=== PATIENT | female | born 1980 | race Caucasian/White ===

== ENCOUNTER 2022-02-17 15:05 | Inpatient (IN) ==
[~2022-02-17 15:05] MED LIST: *HR* Dextrose 50 % in Water (Syg) 50 ML SYRINGE IVP ONE; Norepinephrine 4 MG/254 ML in 0.9% Sodium Chloride IVC ONE
[2022-02-17] MEDS: Norepinephrine 4 MG/254 ML IV.SOLN IVC SCH (15:24)
[2022-02-17 15:38] LABS: VBG HCO3 12 mEq/L (21-27); VBG PCO2 118 mmHg (41-51); VBG PH 6.62 pH Units (7.32-7.42); VBG PO2 104 mmHg (25-50)
[2022-02-17 15:45] LABS: Basophils # 0.2 K/mcL (0.0-0.2); Basophils % 0.9 %; Eosinophils # 0.2 K/mcL (0.0-0.6); Eosinophils % 0.8 %; Hematocrit 39.9 % (35.3-44.9); Hemoglobin 11.9 g/dL (11.5-15.4); Immature Granulocytes % 5.9 % (0-4); Lymphocytes % 46.8 %; Mean Corpuscular HGB Conc 29.8 g/dL (31.6-35.5); Mean Corpuscular Volume 100.5 fL (83.0-100.0); Mean Platelet Volume 10.7 fL (9.4-12.4); Monocytes # 1.1 K/mcL (0.0-1.3); Monocytes % 5.7 %; Nucleated Red Blood Cells 0.1 /100 WBC (0); Platelet Count 273 K/mcL (140-400); Red Blood Count 3.97 M/mcL (3.82-4.97); Segmented Neutrophils % 39.9 %; White Blood Count 18.7 K/mcL (4.3-11.1)
[2022-02-17 15:51] LABS: Lymphocytes # 8.8 K/mcL (0.6-4.6); Neutrophils # 7.5 K/mcL (1.6-8.9)
[2022-02-17 15:53] LABS: Amphetamine Screen,Urine Positive ng/mL (Cutoff=1000); Barbiturate Screen,Urine Negative ng/mL (Cutoff=200); Benzodiazepines Screen,Urine Negative ng/mL (Cutoff=200); Cannabinoid Screen,Urine Negative ng/mL (Cutoff = 50); Cocaine Screen,Urine Positive ng/mL (Cutoff= 300); Opiate Screen,Urine Negative ng/mL (Cutoff=300); Phencyclidine Screen,Urine Negative ng/mL (Cutoff=25)
[2022-02-17 16:09] LABS: Reactive Lymphocytes Present (Not Present)
[2022-02-17 16:24] LABS: Albumin 3.3 g/dL (3.5-5.7); Albumin/Globulin Ratio 1.4 (1.1-2.2); Bilirubin,Total 0.5 mg/dL (0.3-1.0); Calcium 8.3 mg/dL (8.6-10.3); Globulin 2.4 g/dL (2.4-3.5); Total Protein 5.7 g/dL (6.4-8.9)
[2022-02-17 17:08] LABS: VBG HCO3 10 mEq/L (21-27); VBG PCO2 34 mmHg (41-51); VBG PH 7.08 pH Units (7.32-7.42); VBG PO2 227 mmHg (25-50)
[2022-02-17] MEDS ORDERED: *HR* Midazolam HCl 50 MG/10 ML VIAL IVC ONE (17:31)
[2022-02-17] MEDS ORDERED: *HR* FentaNYL (PF) 1,000 MCG/20 ML VIAL ONE (17:31)
[2022-02-17] MEDS ORDERED: Ringers Solution, Lactated 1,000 ML IVC ONE (17:36)
[2022-02-17] MEDS: Midazolam HCl 50 MG/50 ML IV.SOLN IVC SCH (17:49)
[2022-02-17] MEDS: FentaNYL (PF) 1,000 MCG/100 ML IV.SOLN IVC SCH (17:50)
[2022-02-17] MEDS ORDERED: Piperacillin/Tazobactam 3.375 GM in 0.9 % Sodium Chloride Mini Bag 100 ML IVPB ONE (18:42)
[2022-02-17] MEDS ORDERED: Naloxone 0.4 MG/ML INJ IVP PRN (20:41)
[2022-02-17] MEDS ORDERED: Dextrose 4 GM Chewable Tablets PO PRN ×2 (20:49)
[2022-02-17] MEDS ORDERED: *HR* Dextrose 50 % in Water (Syg) 50 ML SYRINGE IVP PRN (20:49)
[2022-02-17] MEDS ORDERED: D5% in Water 1,000 ML IVC PRN (20:49)
[2022-02-17] MEDS ORDERED: Artificial Tears SOLN 15 ML BOTTLE BOTH EYES PRN (20:51)
[2022-02-17 21:05] LABS: Bacteria,Urine Few per hpf (None-Few); Bilirubin,Urine Negative (Negative); Blood,Urine Large (Negative); Clarity,Urine Clear (Clear); Color,Urine Yellow (Yellow); Glucose,Urine (UA) Normal (Normal); Ketones,Urine 100 mg/dL (Negative); Leukocyte Esterase,Urine Trace (Negative); Mucus,Urine Few per lpf (None-Few); Nitrite,Urine Negative (Negative); Protein,Urine 70 mg/dL (Neg-Trace); RBC,Urine 50-100 per hpf (0-3); Specific Gravity,Urine 1.023 (1.010-1.025); Squamous Epithelial Cell,Urine Moderate per hpf (None-Few); WBC,Urine 30-50 per hpf (0-3)
[2022-02-17 21:06] LABS: ABG Base Excess -5 mEq/L (-2 to 3); ABG HCO3 18 mEq/L (21-27); ABG Oxygen Saturation 100 % (95-98); ABG PCO2 28 mmHg (35-45); ABG PH 7.43 pH Units (7.32-7.45); ABG PO2 199 mmHg (85-104); ABG TCO2 19 mEq/L (20-26); Blood Gas Modality ASSIST CONTROL; Blood Gas VT 500 cc
[2022-02-17] MEDS ORDERED: Perflutren Lipid Microsphere 1.3 ML in 0.9 % Sodium Chloride 8.7 ML IVP PRN (21:17)
[2022-02-17 21:44] LABS: INR 1.5; Prothrombin Time 16.4 Seconds (9.4-12.1)
[2022-02-17 22:31] LABS: Activated Partial Thrombo Time 26.8 Seconds (26.0-36.0); Albumin 3.5 g/dL (3.5-5.7); Albumin/Globulin Ratio 1.3 (1.1-2.2); Bilirubin,Direct 0.3 mg/dL (0.0-0.2); Bilirubin,Indirect 0.5 mg/dL (0.0-1.0); Bilirubin,Total 0.8 mg/dL (0.3-1.0); Calcium 7.9 mg/dL (8.6-10.3); Globulin 2.6 g/dL (2.4-3.5); Magnesium 1.8 mg/dL (1.6-2.6); Phosphorous 1.5 mg/dL (2.7-4.5); Potassium 3.1 mEq/L (3.5-5.1); Total Protein 6.1 g/dL (6.4-8.9)
[2022-02-17] MEDS ORDERED: Calcium Gluconate 1gm/50mL 1 GM/50 ML BAG IVPB PRN (22:50)
[2022-02-17] MEDS: Chlorhexidine Rinse 15 ML MOUTHWASH MM SCH (22:51)
[2022-02-17 22:57] LABS: Basophils % 0.2 %; Hematocrit 37.1 % (35.3-44.9); Hemoglobin 12.9 g/dL (11.5-15.4); Mean Corpuscular HGB Conc 34.8 g/dL (31.6-35.5); Red Cell Distribution Width 12.9 % (11.5-14.5)
[2022-02-17 22:59] LABS: Basophils # 0.1 K/mcL (0.0-0.2); Lymphocytes # 0.7 K/mcL (0.6-4.6); Lymphocytes % 2.2 %; Mean Corpuscular Hemoglobin 30.4 pg (28.0-33.3); Mean Corpuscular Volume 87.3 fL (83.0-100.0); Mean Platelet Volume 10.5 fL (9.4-12.4); Monocytes # 1.2 K/mcL (0.0-1.3); Monocytes % 3.9 %; Platelet Count 233 K/mcL (140-400); Red Blood Count 4.25 M/mcL (3.82-4.97); Segmented Neutrophils % 92.7 %; White Blood Count 29.6 K/mcL (4.3-11.1)
[2022-02-17 23:02] LABS: Neutrophils # 27.4 K/mcL (1.6-8.9)
[2022-02-17 23:47] LABS: Platelet Estimate Normal (Normal)
[2022-02-17] MEDS: Artificial Tears SOLN 15 ML BOTTLE BOTH EYES SCH (23:49)
[2022-02-17] MEDS: Insulin LISPRO 300 UNITS/3 ML VIAL SUBQ SCH (23:52)
[2022-02-18 00:26] LABS: Bilirubin,Urine Negative (Negative); Blood,Urine Large (Negative); Clarity,Urine Turbid (Clear); Color,Urine Yellow (Yellow); Glucose,Urine (UA) 100 mg/dL (Normal); Ketones,Urine 15 mg/dL (Negative); Leukocyte Esterase,Urine Negative (Negative); Nitrite,Urine Negative (Negative); PH,Urine 5.5 pH Units (5.0-8.0); Protein,Urine 100 mg/dL (Neg-Trace); Specific Gravity,Urine 1.025 (1.010-1.025); Urobilinogen,Urine Normal (Normal)
[2022-02-18] MEDS: Norepinephrine 4 MG/254 ML IV.SOLN IVC SCH ×3 (00:26→19:39)
[2022-02-18] MEDS: Artificial Tears SOLN 15 ML BOTTLE BOTH EYES SCH ×6 (00:27→19:27)
[2022-02-18] MEDS ORDERED: 0.9 % Sodium Chloride 1,000 ML IVC SCH (00:45)
[2022-02-18 01:27] LABS: Adenovirus Not Detected (Not Detect); Bordetella Pertussis Not Detected (Not Detect); Chlamydophila pneumoniae Not Detected (Not Detect); Coronavirus 229E Not Detected (Not Detect); Coronavirus HKU1 Not Detected (Not Detect); Coronavirus NL63 DETECTED (Not Detect); Coronavirus OC43 Not Detected (Not Detect); Human Metapneumovirus Not Detected (Not Detect); Human Rhinovirus/Enterovirus Not Detected (Not Detect); Influenza A Subtype 2009 H1 Not Detected (Not Detect); Influenza B Not Detected (Not Detect); Mycoplasma pneumoniae Not Detected (Not Detect); Parainfluenza Virus 1 Not Detected (Not Detect); Parainfluenza Virus 2 Not Detected (Not Detect); Parainfluenza Virus 3 Not Detected (Not Detect); Parainfluenza Virus 4 Not Detected (Not Detect); Respiratory Syncytial Virus Not Detected (Not Detect); SARS-CoV-2 Not Detected (Not Detect)
[2022-02-18] MEDS: Piperacillin/Tazobactam 3.375 GM in 0.9 % Sodium Chloride Mini Bag 100 ML IVPB SCH ×3 (03:16→19:38)
[2022-02-18 03:17] LABS: Basophils % 0.2 %; Lymphocytes % 3.6 %; Segmented Neutrophils % 91.9 %
[2022-02-18 03:18] LABS: Basophils # 0.1 K/mcL (0.0-0.2); Hematocrit 37.5 % (35.3-44.9); Hemoglobin 13.1 g/dL (11.5-15.4); Immature Granulocytes % 1.2 % (0-4); Lymphocytes # 1.2 K/mcL (0.6-4.6); Mean Corpuscular HGB Conc 34.9 g/dL (31.6-35.5); Mean Corpuscular Hemoglobin 30.4 pg (28.0-33.3); Mean Platelet Volume 10.5 fL (9.4-12.4); Monocytes % 3.1 %; Neutrophils # 30.5 K/mcL (1.6-8.9); Platelet Count 232 K/mcL (140-400); Red Blood Count 4.31 M/mcL (3.82-4.97); Red Cell Distribution Width 12.7 % (11.5-14.5)
[2022-02-18 03:20] LABS: White Blood Count 33.2 K/mcL (4.3-11.1)
[2022-02-18] MEDS: Insulin LISPRO 300 UNITS/3 ML VIAL SUBQ SCH ×5 (03:32→19:27)
[2022-02-18 03:42] LABS: Platelet Estimate Normal (Normal)
[2022-02-18 03:54] LABS: Alanine Aminotransferase 1079 Units/L (7-52); Albumin 3.6 g/dL (3.5-5.7); Albumin/Globulin Ratio 1.4 (1.1-2.2); Alkaline Phosphatase 58 Units/L (34-104); Aspartate Amino Transferase 1477 Units/L (13-39); BUN/Creatinine Ratio 17 (6-26); Bilirubin,Direct 0.2 mg/dL (0.0-0.2); Bilirubin,Indirect 0.5 mg/dL (0.0-1.0); Bilirubin,Total 0.7 mg/dL (0.3-1.0); Blood Urea Nitrogen 20 mg/dL (6-20); Calcium 8.3 mg/dL (8.6-10.3); Carbon Dioxide 19 mEq/L (23-29); Chloride 107 mEq/L (98-107); Globulin 2.5 g/dL (2.4-3.5); Glucose 99 mg/dL (70-105); Osmolality,Calculated 281 (280-300); Potassium 3.7 mEq/L (3.5-5.1); Sodium 134 mEq/L (136-145); Total Protein 6.1 g/dL (6.4-8.9); eGFR For African Americans > 60 (> 60); eGFR For Non-African Americans 51 (> 60)
[2022-02-18] MEDS ORDERED: Vancomycin 1,500 MG/265 ML IV.SOLN IVPB ONE (04:00)
[2022-02-18 04:41] LABS: ABG Base Excess -5 mEq/L (-2 to 3); ABG HCO3 17 mEq/L (21-27); ABG Oxygen Saturation 99 % (95-98); ABG PCO2 26 mmHg (35-45); ABG PH 7.44 pH Units (7.32-7.45); ABG PO2 111 mmHg (85-104); ABG TCO2 18 mEq/L (20-26); Blood Gas Modality ASSIST CONTROL; Blood Gas VT 500 cc
[2022-02-18] MEDS: Dexmedetomidine HCl 400 MCG/100 ML MLS IVC SCH (04:43)
[2022-02-18 05:08] LABS: INR 1.7; Prothrombin Time 18.6 Seconds (9.4-12.1)
[2022-02-18 09:49] LABS: BUN/Creatinine Ratio 18 (6-26); Blood Urea Nitrogen 19 mg/dL (6-20); Calcium 7.8 mg/dL (8.6-10.3); Carbon Dioxide 17 mEq/L (23-29); Chloride 110 mEq/L (98-107); Glucose 82 mg/dL (70-105); Osmolality,Calculated 281 (280-300); Potassium 4.3 mEq/L (3.5-5.1); Sodium 135 mEq/L (136-145); eGFR For African Americans > 60 (> 60); eGFR For Non-African Americans 58 (> 60)
[2022-02-18 09:54] LABS: Troponin I 0.45 ng/mL (< 0.04)
[2022-02-18] MEDS: Chlorhexidine Rinse 15 ML MOUTHWASH MM SCH ×2 (10:36→20:29)
[2022-02-18] MEDS: Pantoprazole 40 MG VIAL IVP SCH (10:36)
[2022-02-18] MEDS: FentaNYL (PF) 1,000 MCG/100 ML IV.SOLN IVC SCH (18:03)
[2022-02-18] MEDS: Midazolam HCl 50 MG/50 ML IV.SOLN IVC SCH (18:04)
[2022-02-19] MEDS: Artificial Tears SOLN 15 ML BOTTLE BOTH EYES SCH ×6 (00:01→19:36)
[2022-02-19] MEDS: Insulin LISPRO 300 UNITS/3 ML VIAL SUBQ SCH ×6 (00:01→19:39)
[2022-02-19] MEDS: D5% in 0.9% NACL 1,000 ML IVC SCH ×2 (00:21→15:06)
[2022-02-19] MEDS: Dexmedetomidine HCl 400 MCG/100 ML MLS IVC SCH (01:04)
[2022-02-19] MEDS: Norepinephrine 4 MG/254 ML IV.SOLN IVC SCH ×2 (01:04→19:49)
[2022-02-19] MEDS: Piperacillin/Tazobactam 3.375 GM in 0.9 % Sodium Chloride Mini Bag 100 ML IVPB SCH ×3 (03:08→19:36)
[2022-02-19 03:15] LABS: Basophils % 0.2 %; Eosinophils # 0.1 K/mcL (0.0-0.6); Eosinophils % 0.3 %; Hematocrit 36.2 % (35.3-44.9); Immature Granulocytes % 0.5 % (0-4); Lymphocytes # 1.7 K/mcL (0.6-4.6); Mean Corpuscular HGB Conc 33.1 g/dL (31.6-35.5); Mean Corpuscular Hemoglobin 29.9 pg (28.0-33.3); Mean Platelet Volume 10.7 fL (9.4-12.4); Monocytes % 5.2 %; Neutrophils # 16.3 K/mcL (1.6-8.9); Platelet Count 224 K/mcL (140-400); Red Blood Count 4.02 M/mcL (3.82-4.97); Red Cell Distribution Width 13.5 % (11.5-14.5); Segmented Neutrophils % 84.8 %; White Blood Count 19.2 K/mcL (4.3-11.1)
[2022-02-19 03:33] LABS: Amylase 118 Units/L (29-103); BUN/Creatinine Ratio 16 (6-26); Blood Urea Nitrogen 14 mg/dL (6-20); Calcium 7.9 mg/dL (8.6-10.3); Carbon Dioxide 16 mEq/L (23-29); Chloride 111 mEq/L (98-107); Creatine Kinase 827 Units/L (30-223); Glucose 86 mg/dL (70-105); Lipase 20 Units/L (11-82); Osmolality,Calculated 282 (280-300); Potassium 3.7 mEq/L (3.5-5.1); Sodium 136 mEq/L (136-145); eGFR For African Americans > 60 (> 60); eGFR For Non-African Americans > 60 (> 60)
[2022-02-19 03:52] LABS: ABG Base Excess -7 mEq/L (-2 to 3); ABG HCO3 17 mEq/L (21-27); ABG Oxygen Saturation 96 % (95-98); ABG PCO2 29 mmHg (35-45); ABG PH 7.37 pH Units (7.32-7.45); ABG PO2 82 mmHg (85-104); ABG TCO2 18 mEq/L (20-26); Blood Gas Modality AF; Blood Gas VT 450 cc
[2022-02-19] MEDS ORDERED: Vancomycin 1,250 MG/262.5 ML IV.SOLN IVPB SCH (04:00)
[2022-02-19] MEDS: Pantoprazole 40 MG VIAL IVP SCH (07:28)
[2022-02-19] MEDS: Chlorhexidine Rinse 15 ML MOUTHWASH MM SCH ×2 (07:28→19:35)
[2022-02-19] MEDS ORDERED: *HR* LORazepam 2 MG/ML VIAL IVP PRN (10:43)
[2022-02-19] MEDS: Vancomycin 1,250 MG/262.5 ML IV.SOLN IVPB SCH (17:17)
[2022-02-20] MEDS: Artificial Tears SOLN 15 ML BOTTLE BOTH EYES SCH ×6 (00:08→19:42)
[2022-02-20] MEDS: Insulin LISPRO 300 UNITS/3 ML VIAL SUBQ SCH ×6 (00:08→19:42)
[2022-02-20] MEDS: D5% in 0.9% NACL 1,000 ML IVC SCH ×2 (03:11→13:01)
[2022-02-20] MEDS: Piperacillin/Tazobactam 3.375 GM in 0.9 % Sodium Chloride Mini Bag 100 ML IVPB SCH ×3 (04:10→22:10)
[2022-02-20] MEDS: Vancomycin 1,250 MG/262.5 ML IV.SOLN IVPB SCH ×2 (04:13→16:53)
[2022-02-20 04:44] LABS: ABG Base Excess -5 mEq/L (-2 to 3); ABG HCO3 19 mEq/L (21-27); ABG Oxygen Saturation 97 % (95-98); ABG PCO2 30 mmHg (35-45); ABG PO2 94 mmHg (85-104); ABG TCO2 19 mEq/L (20-26); Blood Gas Modality ASSIST CONTROL; Blood Gas VT 450 cc
[2022-02-20 06:59] LABS: Basophils # 0.1 K/mcL (0.0-0.2); Basophils % 0.3 %; Eosinophils # 0.1 K/mcL (0.0-0.6); Eosinophils % 0.5 %; Hematocrit 36.1 % (35.3-44.9); Hemoglobin 12.1 g/dL (11.5-15.4); Immature Granulocytes % 0.5 % (0-4); Lymphocytes # 1.5 K/mcL (0.6-4.6); Lymphocytes % 9.7 %; Mean Corpuscular HGB Conc 33.5 g/dL (31.6-35.5); Mean Corpuscular Volume 89.6 fL (83.0-100.0); Mean Platelet Volume 10.7 fL (9.4-12.4); Monocytes # 1.3 K/mcL (0.0-1.3); Monocytes % 8.7 %; Neutrophils # 12.1 K/mcL (1.6-8.9); Platelet Count 201 K/mcL (140-400); Red Blood Count 4.03 M/mcL (3.82-4.97); Red Cell Distribution Width 13.5 % (11.5-14.5); Segmented Neutrophils % 80.3 %; White Blood Count 15.1 K/mcL (4.3-11.1)
[2022-02-20 07:13] LABS: BUN/Creatinine Ratio 9 (6-26); Blood Urea Nitrogen 6 mg/dL (6-20); Carbon Dioxide 20 mEq/L (23-29); Chloride 113 mEq/L (98-107); Glucose 106 mg/dL (70-105); Magnesium 1.6 mg/dL (1.6-2.6); Osmolality,Calculated 284 (280-300); Phosphorous 1.5 mg/dL (2.7-4.5); Potassium 3.6 mEq/L (3.5-5.1); Sodium 138 mEq/L (136-145); eGFR For African Americans > 60 (> 60); eGFR For Non-African Americans > 60 (> 60)
[2022-02-20] MEDS: Chlorhexidine Rinse 15 ML MOUTHWASH MM SCH ×2 (07:27→22:10)
[2022-02-20] MEDS: Pantoprazole 40 MG VIAL IVP SCH (07:28)
[2022-02-20] MEDS: Norepinephrine 4 MG/254 ML IV.SOLN IVC SCH ×3 (07:28→22:10)
[2022-02-20] MEDS ORDERED: Potassium Phosphate 44 MEQ in 0.9 % Sodium Chloride 250 ML IVPB ONE (07:47)
[2022-02-20 19:12] LABS: Magnesium 1.9 mg/dL (1.6-2.6); Phosphorous 2.4 mg/dL (2.7-4.5)
[2022-02-20 23:03] LABS: Appearance of Body Fluid Hazy (Clear); Source of Body Fluid RIGHT LOWER LOBE LUN; Volume of Body Fluid 17 mL
[2022-02-21] MEDS: Insulin LISPRO 300 UNITS/3 ML VIAL SUBQ SCH ×6 (00:06→20:25)
[2022-02-21] MEDS: Artificial Tears SOLN 15 ML BOTTLE BOTH EYES SCH ×7 (00:06→23:42)
[2022-02-21] MEDS: D5% in 0.9% NACL 1,000 ML IVC SCH ×3 (00:08→18:45)
[2022-02-21] MEDS: Piperacillin/Tazobactam 3.375 GM in 0.9 % Sodium Chloride Mini Bag 100 ML IVPB SCH ×3 (05:03→20:41)
[2022-02-21 05:20] LABS: VBG Ionized Calcium 1.08 mmol/L (1.15-1.35)
[2022-02-21 05:25] LABS: Basophils # 0.1 K/mcL (0.0-0.2); Basophils % 0.5 %; Eosinophils # 0.2 K/mcL (0.0-0.6); Eosinophils % 1.4 %; Hemoglobin 11.5 g/dL (11.5-15.4); Immature Granulocytes % 0.7 % (0-4); Lymphocytes # 1.5 K/mcL (0.6-4.6); Lymphocytes % 13.4 %; Mean Corpuscular HGB Conc 33.8 g/dL (31.6-35.5); Mean Corpuscular Hemoglobin 30.1 pg (28.0-33.3); Mean Platelet Volume 11.1 fL (9.4-12.4); Monocytes # 0.9 K/mcL (0.0-1.3); Monocytes % 8.3 %; Neutrophils # 8.3 K/mcL (1.6-8.9); Platelet Count 185 K/mcL (140-400); Red Blood Count 3.82 M/mcL (3.82-4.97); Red Cell Distribution Width 13.5 % (11.5-14.5); Segmented Neutrophils % 75.7 %
[2022-02-21 05:48] LABS: Alanine Aminotransferase 325 Units/L (7-52); Albumin/Globulin Ratio 1.3 (1.1-2.2); Alkaline Phosphatase 45 Units/L (34-104); Aspartate Amino Transferase 66 Units/L (13-39); BUN/Creatinine Ratio 8 (6-26); Bilirubin,Total 0.7 mg/dL (0.3-1.0); Blood Urea Nitrogen 4 mg/dL (6-20); Calcium 8.1 mg/dL (8.6-10.3); Carbon Dioxide 22 mEq/L (23-29); Chloride 115 mEq/L (98-107); Globulin 2.4 g/dL (2.4-3.5); Glucose 111 mg/dL (70-105); Magnesium 1.7 mg/dL (1.6-2.6); Osmolality,Calculated 288 (280-300); Phosphorous 1.9 mg/dL (2.7-4.5); Potassium 3.5 mEq/L (3.5-5.1); Sodium 140 mEq/L (136-145); Total Protein 5.4 g/dL (6.4-8.9); eGFR For African Americans > 60 (> 60); eGFR For Non-African Americans > 60 (> 60)
[2022-02-21] MEDS: Vancomycin 1,250 MG/262.5 ML IV.SOLN IVPB SCH (06:10)
[2022-02-21] MEDS: Chlorhexidine Rinse 15 ML MOUTHWASH MM SCH ×2 (08:30→20:41)
[2022-02-21] MEDS: Pantoprazole 40 MG VIAL IVP SCH (08:30)
[2022-02-21] MEDS: Norepinephrine 4 MG/254 ML IV.SOLN IVC SCH (08:38)
[2022-02-21] MEDS ORDERED: Potassium Phosphate 44 MEQ in 0.9 % Sodium Chloride 250 ML IVPB ONE (10:00)
[2022-02-21] MEDS ORDERED: D10% in Water 500 ML IVC PRN ×2 (11:47→17:35)
[2022-02-21 13:17] LABS: Triglycerides 107 mg/dL (< 150)
[2022-02-21] MEDS ORDERED: Vancomycin 1,250 MG/262.5 ML IV.SOLN IVPB SCH (14:00)
[2022-02-21] MEDS ORDERED: Vancomycin 1,500 MG/265 ML IV.SOLN IVPB SCH (17:00)
[2022-02-21] MEDS ORDERED: Clinimix E 5%-15% SOLUTION 2,000 ML with MVI, adult with vitamin K 10 ML IVC SCH ×2 (17:00→17:35)
[2022-02-21] MEDS ORDERED: *HR* LORazepam 2 MG/ML VIAL IVP PRN (17:35)
[2022-02-21] MEDS ORDERED: Dextrose 4 GM Chewable Tablets PO PRN ×2 (17:35)
[2022-02-21] MEDS ORDERED: Naloxone 0.4 MG/ML INJ IVP PRN (17:35)
[2022-02-21] MEDS ORDERED: Perflutren Lipid Microsphere 1.3 ML in 0.9 % Sodium Chloride 8.7 ML IVP PRN (17:35)
[2022-02-21] MEDS ORDERED: Artificial Tears SOLN 15 ML BOTTLE BOTH EYES PRN (17:35)
[2022-02-21] MEDS ORDERED: *HR* Dextrose 50 % in Water (Syg) 50 ML SYRINGE IVP PRN (17:35)
[2022-02-21] MEDS ORDERED: D5% in Water 1,000 ML IVC PRN (17:35)
[2022-02-22] MEDS: Insulin LISPRO 300 UNITS/3 ML VIAL SUBQ SCH ×6 (00:12→20:23)
[2022-02-22 05:12] LABS: VBG Ionized Calcium 1.17 mmol/L (1.15-1.35)
[2022-02-22] MEDS: Artificial Tears SOLN 15 ML BOTTLE BOTH EYES SCH ×5 (05:17→20:23)
[2022-02-22 05:26] LABS: Alanine Aminotransferase 215 Units/L (7-52); Albumin 2.9 g/dL (3.5-5.7); Albumin/Globulin Ratio 1.1 (1.1-2.2); Alkaline Phosphatase 40 Units/L (34-104); Aspartate Amino Transferase 35 Units/L (13-39); BUN/Creatinine Ratio 7 (6-26); Bilirubin,Total 0.4 mg/dL (0.3-1.0); Blood Urea Nitrogen 6 mg/dL (6-20); Calcium 8.1 mg/dL (8.6-10.3); Carbon Dioxide 22 mEq/L (23-29); Chloride 116 mEq/L (98-107); Globulin 2.6 g/dL (2.4-3.5); Glucose 124 mg/dL (70-105); Magnesium 1.8 mg/dL (1.6-2.6); Osmolality,Calculated 295 (280-300); Phosphorous 2.9 mg/dL (2.7-4.5); Potassium 3.3 mEq/L (3.5-5.1); Sodium 143 mEq/L (136-145); Total Protein 5.5 g/dL (6.4-8.9); eGFR For African Americans > 60 (> 60); eGFR For Non-African Americans > 60 (> 60)
[2022-02-22] MEDS: Piperacillin/Tazobactam 3.375 GM in 0.9 % Sodium Chloride Mini Bag 100 ML IVPB SCH ×3 (05:30→20:22)
[2022-02-22] MEDS: Pantoprazole 40 MG VIAL IVP SCH (08:18)
[2022-02-22] MEDS: Chlorhexidine Rinse 15 ML MOUTHWASH MM SCH ×2 (08:21→20:22)
[2022-02-22] MEDS: D5% in 0.9% NACL 1,000 ML IVC SCH (08:34)
[2022-02-22] MEDS ORDERED: Acetaminophen IV 500 MG/50 ML BAG IVPB ONE ×2 (11:20→18:02)
[2022-02-22] MEDS ORDERED: Clinimix E 5%-15% SOLUTION 2,000 ML IVC SCH (17:00)
[2022-02-23] MEDS: Artificial Tears SOLN 15 ML BOTTLE BOTH EYES SCH ×6 (00:27→20:31)
[2022-02-23] MEDS: Insulin LISPRO 300 UNITS/3 ML VIAL SUBQ SCH ×6 (00:27→21:34)
[2022-02-23] MEDS: Piperacillin/Tazobactam 3.375 GM in 0.9 % Sodium Chloride Mini Bag 100 ML IVPB SCH ×2 (04:05→11:31)
[2022-02-23 04:51] LABS: BUN/Creatinine Ratio 11 (6-26); Blood Urea Nitrogen 11 mg/dL (6-20); Calcium 8.4 mg/dL (8.6-10.3); Carbon Dioxide 24 mEq/L (23-29); Chloride 114 mEq/L (98-107); Glucose 103 mg/dL (70-105); Magnesium 1.8 mg/dL (1.6-2.6); Osmolality,Calculated 298 (280-300); Phosphorous 4.4 mg/dL (2.7-4.5); Potassium 3.5 mEq/L (3.5-5.1); Sodium 144 mEq/L (136-145); eGFR For African Americans > 60 (> 60); eGFR For Non-African Americans > 60 (> 60)
[2022-02-23] MEDS: Chlorhexidine Rinse 15 ML MOUTHWASH MM SCH ×2 (08:36→21:35)
[2022-02-23] MEDS: Pantoprazole 40 MG VIAL IVP SCH (08:38)
[2022-02-23] MEDS ORDERED: Clinimix 5%-20% SOLUTION 2,000 ML with MVI, adult with vitamin K 10 ML, Sodium Phosph... IV SCH (17:00)
[2022-02-23] MEDS ORDERED: Acetaminophen IV 1,000 MG/100 ML BAG IVPB ONE (18:40)
[2022-02-24] MEDS: Insulin LISPRO 300 UNITS/3 ML VIAL SUBQ SCH ×7 (00:16→23:42)
[2022-02-24] MEDS: Artificial Tears SOLN 15 ML BOTTLE BOTH EYES SCH ×3 (00:16→08:24)
[2022-02-24 05:08] LABS: Alanine Aminotransferase 107 Units/L (7-52); Albumin 2.9 g/dL (3.5-5.7); Albumin/Globulin Ratio 1.1 (1.1-2.2); Alkaline Phosphatase 36 Units/L (34-104); Aspartate Amino Transferase 18 Units/L (13-39); BUN/Creatinine Ratio 18 (6-26); Bilirubin,Total 0.3 mg/dL (0.3-1.0); Blood Urea Nitrogen 16 mg/dL (6-20); Calcium 8.3 mg/dL (8.6-10.3); Carbon Dioxide 26 mEq/L (23-29); Chloride 111 mEq/L (98-107); Globulin 2.6 g/dL (2.4-3.5); Glucose 112 mg/dL (70-105); Magnesium 1.8 mg/dL (1.6-2.6); Osmolality,Calculated 294 (280-300); Potassium 3.3 mEq/L (3.5-5.1); Sodium 141 mEq/L (136-145); Total Protein 5.5 g/dL (6.4-8.9); eGFR For African Americans > 60 (> 60); eGFR For Non-African Americans > 60 (> 60)
[2022-02-24] MEDS: Pantoprazole 40 MG VIAL IVP SCH (08:24)
[2022-02-24] MEDS: Chlorhexidine Rinse 15 ML MOUTHWASH MM SCH (08:24)
[2022-02-24] MEDS ORDERED: CLINIMIX IV SCH (17:00)
[2022-02-24] MEDS ORDERED: [UNRECOGNIZED DRUG - OTHER] IV SCH (17:00)
[2022-02-24] MEDS ORDERED: SODIUM PHOSPHATE IV SCH (17:00)
[2022-02-24 18:57] LABS: HSV Source BAL RLL
[2022-02-25] MEDS: Insulin LISPRO 300 UNITS/3 ML VIAL SUBQ SCH ×6 (04:57→23:48)
[2022-02-25 05:00] LABS: Magnesium 1.7 mg/dL (1.6-2.6); Phosphorous 3.7 mg/dL (2.7-4.5)
[2022-02-25 08:04] LABS: BUN/Creatinine Ratio 21 (6-26); Blood Urea Nitrogen 17 mg/dL (6-20); Calcium 8.9 mg/dL (8.6-10.3); Carbon Dioxide 24 mEq/L (23-29); Chloride 107 mEq/L (98-107); Glucose 78 mg/dL (70-105); Osmolality,Calculated 284 (280-300); Potassium 4.2 mEq/L (3.5-5.1); Sodium 137 mEq/L (136-145); eGFR For African Americans > 60 (> 60); eGFR For Non-African Americans > 60 (> 60)
[2022-02-25] MEDS ORDERED: CLINIMIX IV SCH (17:00)
[2022-02-25] MEDS ORDERED: SODIUM PHOSPHATE IV SCH (17:00)
[2022-02-25] MEDS ORDERED: [UNRECOGNIZED DRUG - OTHER] IV SCH (17:00)
[2022-02-26 03:40] LABS: Magnesium 1.8 mg/dL (1.6-2.6)
[2022-02-26] MEDS: Insulin LISPRO 300 UNITS/3 ML VIAL SUBQ SCH ×5 (06:07→20:53)
[2022-02-26 09:38] LABS: Alanine Aminotransferase 66 Units/L (7-52); Albumin 3.7 g/dL (3.5-5.7); Alkaline Phosphatase 52 Units/L (34-104); Aspartate Amino Transferase 22 Units/L (13-39); BUN/Creatinine Ratio 25 (6-26); Bilirubin,Total 0.5 mg/dL (0.3-1.0); Blood Urea Nitrogen 20 mg/dL (6-20); Calcium 9.2 mg/dL (8.6-10.3); Carbon Dioxide 25 mEq/L (23-29); Chloride 102 mEq/L (98-107); Globulin 3.7 g/dL (2.4-3.5); Glucose 118 mg/dL (70-105); Osmolality,Calculated 282 (280-300); Potassium 4.6 mEq/L (3.5-5.1); Sodium 134 mEq/L (136-145); Total Protein 7.4 g/dL (6.4-8.9); eGFR For African Americans > 60 (> 60); eGFR For Non-African Americans > 60 (> 60)
[2022-02-26] MEDS ORDERED: Clinimix 5%-20% SOLUTION 2,000 ML with MVI, adult with vitamin K 10 ML, Sodium Phosph... IV SCH (17:00)
[2022-02-27] MEDS: Insulin LISPRO 300 UNITS/3 ML VIAL SUBQ SCH ×6 (02:36→20:07)
[2022-02-27 10:35] LABS: Alanine Aminotransferase 54 Units/L (7-52); Albumin 4.2 g/dL (3.5-5.7); Albumin/Globulin Ratio 1.1 (1.1-2.2); Alkaline Phosphatase 72 Units/L (34-104); Aspartate Amino Transferase 20 Units/L (13-39); BUN/Creatinine Ratio 28 (6-26); Bilirubin,Total 0.5 mg/dL (0.3-1.0); Blood Urea Nitrogen 27 mg/dL (6-20); Calcium 9.7 mg/dL (8.6-10.3); Carbon Dioxide 26 mEq/L (23-29); Chloride 100 mEq/L (98-107); Glucose 94 mg/dL (70-105); Osmolality,Calculated 281 (280-300); Potassium 4.3 mEq/L (3.5-5.1); Sodium 133 mEq/L (136-145); Total Protein 8.2 g/dL (6.4-8.9); eGFR For African Americans > 60 (> 60); eGFR For Non-African Americans > 60 (> 60)
[2022-02-27 11:13] LABS: INR 1.3
[2022-02-27] MEDS ORDERED: Lidocaine -MPF 2% 5 ML VIAL ONE (13:03)
[2022-02-27] MEDS ORDERED: ceFAZolin 1,000 MG in 0.9 % Sodium Chloride 10 ML IVP ONE (13:20)
[2022-02-27] MEDS ORDERED: *HR* Succinylcholine 200 MG/10 ML VIAL IVP ONE (13:22)
[2022-02-27] MEDS ORDERED: *HR* FentaNYL (PF) 100 MCG/2 ML VIAL ONE (13:36)
[2022-02-27] MEDS: *HR* Heparin 5,000 UNIT/ML VIAL SQ SCH ×2 (14:21→22:08)
[2022-02-27] MEDS ORDERED: Acetaminophen IV 1,000 MG/100 ML BAG IVPB ONE (16:03)
[2022-02-27] MEDS ORDERED: Clinimix 5%-20% SOLUTION 2,000 ML with MVI, adult with vitamin K 10 ML, ZN/CU/MN/SE 1... IV SCH (17:00)
[2022-02-28] MEDS: Insulin LISPRO 300 UNITS/3 ML VIAL SUBQ SCH ×6 (02:28→20:50)
[2022-02-28] MEDS: *HR* Heparin 5,000 UNIT/ML VIAL SQ SCH ×3 (05:29→22:49)
[2022-02-28 09:34] LABS: Hematocrit 45.4 % (35.3-44.9); Hemoglobin 12.7 g/dL (11.5-15.4); Mean Corpuscular Hemoglobin 30.6 pg (28.0-33.3); Mean Corpuscular Volume 109.4 fL (83.0-100.0); Mean Platelet Volume 11.6 fL (9.4-12.4); Platelet Count 347 K/mcL (140-400); Red Blood Count 4.15 M/mcL (3.82-4.97); Red Cell Distribution Width 13.4 % (11.5-14.5); White Blood Count 13.2 K/mcL (4.3-11.1)
[2022-02-28 13:19] LABS: Alanine Aminotransferase 44 Units/L (7-52); Albumin 4.3 g/dL (3.5-5.7); Alkaline Phosphatase 93 Units/L (34-104); Aspartate Amino Transferase 25 Units/L (13-39); BUN/Creatinine Ratio 38 (6-26); Bilirubin,Total 0.5 mg/dL (0.3-1.0); Blood Urea Nitrogen 33 mg/dL (6-20); Calcium 9.7 mg/dL (8.6-10.3); Carbon Dioxide 23 mEq/L (23-29); Chloride 100 mEq/L (98-107); Globulin 4.1 g/dL (2.4-3.5); Glucose 110 mg/dL (70-105); Magnesium 2.1 mg/dL (1.6-2.6); Osmolality,Calculated 282 (280-300); Phosphorous 3.7 mg/dL (2.7-4.5); Potassium 4.3 mEq/L (3.5-5.1); Sodium 132 mEq/L (136-145); Total Protein 8.4 g/dL (6.4-8.9); eGFR For African Americans > 60 (> 60); eGFR For Non-African Americans > 60 (> 60)
[2022-02-28] MEDS: Clinimix E 5%-15% SOLUTION 2,000 ML with MVI, adult with vitamin K 10 ML IVC SCH (17:43)
[2022-03-01] MEDS: Insulin LISPRO 300 UNITS/3 ML VIAL SUBQ SCH ×6 (03:53→22:03)
[2022-03-01] MEDS: *HR* Heparin 5,000 UNIT/ML VIAL SQ SCH ×3 (04:50→22:03)
[2022-03-01 06:17] LABS: Phosphorous 4.7 mg/dL (2.7-4.5)
[2022-03-01 09:44] LABS: Basophils # 0.1 K/mcL (0.0-0.2); Basophils % 0.7 %; Eosinophils # 0.3 K/mcL (0.0-0.6); Eosinophils % 2.1 %; Hematocrit 40.9 % (35.3-44.9); Hemoglobin 13.9 g/dL (11.5-15.4); Immature Granulocytes % 0.7 % (0-4); Lymphocytes # 1.7 K/mcL (0.6-4.6); Mean Corpuscular Hemoglobin 30.1 pg (28.0-33.3); Mean Corpuscular Volume 88.5 fL (83.0-100.0); Mean Platelet Volume 10.9 fL (9.4-12.4); Monocytes # 1.3 K/mcL (0.0-1.3); Monocytes % 9.3 %; Neutrophils # 10.7 K/mcL (1.6-8.9); Platelet Count 415 K/mcL (140-400); Red Blood Count 4.62 M/mcL (3.82-4.97); Red Cell Distribution Width 13.2 % (11.5-14.5); Segmented Neutrophils % 75.2 %; White Blood Count 14.3 K/mcL (4.3-11.1)
[2022-03-01] MEDS: Clinimix E 5%-15% SOLUTION 2,000 ML with MVI, adult with vitamin K 10 ML IVC SCH (17:08)
[2022-03-01] MEDS: Nystatin POWDER 30 GM BOTTLE TP SCH (22:10)
[2022-03-02] MEDS: Insulin LISPRO 300 UNITS/3 ML VIAL SUBQ SCH ×6 (02:44→19:50)
[2022-03-02 05:02] LABS: Alanine Aminotransferase 37 Units/L (7-52); Albumin/Globulin Ratio 1.1 (1.1-2.2); Alkaline Phosphatase 104 Units/L (34-104); Aspartate Amino Transferase 28 Units/L (13-39); BUN/Creatinine Ratio 39 (6-26); Bilirubin,Total 0.4 mg/dL (0.3-1.0); Blood Urea Nitrogen 35 mg/dL (6-20); Calcium 9.6 mg/dL (8.6-10.3); Carbon Dioxide 26 mEq/L (23-29); Chloride 102 mEq/L (98-107); Globulin 3.8 g/dL (2.4-3.5); Glucose 107 mg/dL (70-105); Osmolality,Calculated 292 (280-300); Phosphorous 4.4 mg/dL (2.7-4.5); Potassium 3.9 mEq/L (3.5-5.1); Sodium 137 mEq/L (136-145); Total Protein 7.8 g/dL (6.4-8.9); eGFR For African Americans > 60 (> 60); eGFR For Non-African Americans > 60 (> 60)
[2022-03-02] MEDS: *HR* Heparin 5,000 UNIT/ML VIAL SQ SCH ×3 (06:14→19:49)
[2022-03-02] MEDS: Nystatin POWDER 30 GM BOTTLE TP SCH ×2 (09:43→19:50)
[2022-03-02] MEDS: Clinimix E 5%-15% SOLUTION 2,000 ML with MVI, adult with vitamin K 10 ML IVC SCH (19:51)
[2022-03-03] MEDS: Insulin LISPRO 300 UNITS/3 ML VIAL SUBQ SCH ×6 (01:15→21:15)
[2022-03-03 02:17] LABS: Basophils # 0.1 K/mcL (0.0-0.2); Basophils % 0.8 %; Eosinophils # 0.2 K/mcL (0.0-0.6); Eosinophils % 1.4 %; Hematocrit 40.6 % (35.3-44.9); Hemoglobin 13.8 g/dL (11.5-15.4); Immature Granulocytes % 0.5 % (0-4); Lymphocytes # 2.1 K/mcL (0.6-4.6); Mean Corpuscular Hemoglobin 30.4 pg (28.0-33.3); Mean Corpuscular Volume 89.4 fL (83.0-100.0); Mean Platelet Volume 10.9 fL (9.4-12.4); Monocytes # 1.1 K/mcL (0.0-1.3); Neutrophils # 10.5 K/mcL (1.6-8.9); Platelet Count 412 K/mcL (140-400); Red Blood Count 4.54 M/mcL (3.82-4.97); Red Cell Distribution Width 13.1 % (11.5-14.5); Segmented Neutrophils % 74.3 %; White Blood Count 14.2 K/mcL (4.3-11.1)
[2022-03-03 02:32] LABS: Alanine Aminotransferase 32 Units/L (7-52); Albumin 4.1 g/dL (3.5-5.7); Albumin/Globulin Ratio 1.1 (1.1-2.2); Alkaline Phosphatase 105 Units/L (34-104); Aspartate Amino Transferase 28 Units/L (13-39); BUN/Creatinine Ratio 42 (6-26); Bilirubin,Total 0.4 mg/dL (0.3-1.0); Blood Urea Nitrogen 36 mg/dL (6-20); Calcium 9.7 mg/dL (8.6-10.3); Carbon Dioxide 29 mEq/L (23-29); Chloride 101 mEq/L (98-107); Globulin 3.6 g/dL (2.4-3.5); Glucose 123 mg/dL (70-105); Magnesium 2.1 mg/dL (1.6-2.6); Osmolality,Calculated 298 (280-300); Potassium 3.7 mEq/L (3.5-5.1); Sodium 139 mEq/L (136-145); Total Protein 7.7 g/dL (6.4-8.9); eGFR For African Americans > 60 (> 60); eGFR For Non-African Americans > 60 (> 60)
[2022-03-03] MEDS: *HR* Heparin 5,000 UNIT/ML VIAL SQ SCH ×3 (05:19→21:30)
[2022-03-03] MEDS: Nystatin POWDER 30 GM BOTTLE TP SCH ×2 (09:18→21:30)
[2022-03-03] MEDS ORDERED: Fluconazole 150 MG TABLET GTUBE ONE (10:35)
[2022-03-03] MEDS: *HR* LORazepam 2 MG/ML VIAL IVP ONE (14:48)
[2022-03-03] MEDS: *HR* OxyCODONE Oral Soln 5 MG/5 ML UD.LIQ GTUBE PRN (17:02)
[2022-03-04] MEDS: Insulin LISPRO 300 UNITS/3 ML VIAL SUBQ SCH ×5 (00:02→15:56)
[2022-03-04 03:49] LABS: Alanine Aminotransferase 29 Units/L (7-52); Albumin 4.1 g/dL (3.5-5.7); Albumin/Globulin Ratio 1.1 (1.1-2.2); Alkaline Phosphatase 100 Units/L (34-104); Aspartate Amino Transferase 30 Units/L (13-39); BUN/Creatinine Ratio 44 (6-26); Bilirubin,Total 0.4 mg/dL (0.3-1.0); Blood Urea Nitrogen 38 mg/dL (6-20); Calcium 9.8 mg/dL (8.6-10.3); Carbon Dioxide 30 mEq/L (23-29); Chloride 102 mEq/L (98-107); Globulin 3.6 g/dL (2.4-3.5); Glucose 88 mg/dL (70-105); Osmolality,Calculated 298 (280-300); Phosphorous 4.3 mg/dL (2.7-4.5); Sodium 140 mEq/L (136-145); Total Protein 7.7 g/dL (6.4-8.9); eGFR For African Americans > 60 (> 60); eGFR For Non-African Americans > 60 (> 60)
[2022-03-04] MEDS: *HR* OxyCODONE Oral Soln 5 MG/5 ML UD.LIQ GTUBE PRN ×3 (05:43→22:12)
[2022-03-04] MEDS: *HR* Heparin 5,000 UNIT/ML VIAL SQ SCH ×3 (05:44→20:06)
[2022-03-04] MEDS: Nystatin POWDER 30 GM BOTTLE TP SCH ×2 (08:59→20:05)
[2022-03-05] MEDS: Insulin LISPRO 300 UNITS/3 ML VIAL SUBQ SCH ×5 (00:22→16:49)
[2022-03-05] MEDS: *HR* OxyCODONE Oral Soln 5 MG/5 ML UD.LIQ GTUBE PRN ×2 (04:41→13:27)
[2022-03-05 05:21] LABS: Alanine Aminotransferase 27 Units/L (7-52); Albumin 4.4 g/dL (3.5-5.7); Alkaline Phosphatase 102 Units/L (34-104); Aspartate Amino Transferase 33 Units/L (13-39); BUN/Creatinine Ratio 35 (6-26); Bilirubin,Total 0.5 mg/dL (0.3-1.0); Blood Urea Nitrogen 40 mg/dL (6-20); Carbon Dioxide 31 mEq/L (23-29); Chloride 101 mEq/L (98-107); Globulin 4.4 g/dL (2.4-3.5); Glucose 96 mg/dL (70-105); Magnesium 2.2 mg/dL (1.6-2.6); Osmolality,Calculated 300 (280-300); Phosphorous 4.5 mg/dL (2.7-4.5); Potassium 4.2 mEq/L (3.5-5.1); Sodium 140 mEq/L (136-145); Total Protein 8.8 g/dL (6.4-8.9); eGFR For African Americans > 60 (> 60); eGFR For Non-African Americans 53 (> 60)
[2022-03-05] MEDS: *HR* Heparin 5,000 UNIT/ML VIAL SQ SCH ×3 (05:26→22:39)
[2022-03-05] MEDS ORDERED: Ringers Solution, Lactated 1,000 ML IVC ONE (08:47)
[2022-03-05] MEDS: Nystatin POWDER 30 GM BOTTLE TP SCH (08:54)
[2022-03-05] MEDS ORDERED: *HR* LORazepam 2 MG/ML VIAL IVP PRN (09:07)
[2022-03-05] MEDS: Piperacillin/Tazobactam 3.375 GM in 0.9 % Sodium Chloride Mini Bag 100 ML IVPB SCH ×2 (12:16→19:46)
[2022-03-05 12:36] LABS: Basophils # 0.1 K/mcL (0.0-0.2); Basophils % 0.9 %; Eosinophils # 0.2 K/mcL (0.0-0.6); Eosinophils % 1.1 %; Hematocrit 39.8 % (35.3-44.9); Hemoglobin 13.2 g/dL (11.5-15.4); Immature Granulocytes % 0.3 % (0-4); Lymphocytes # 2.2 K/mcL (0.6-4.6); Lymphocytes % 15.1 %; Mean Corpuscular HGB Conc 33.2 g/dL (31.6-35.5); Mean Corpuscular Volume 90.5 fL (83.0-100.0); Mean Platelet Volume 11.5 fL (9.4-12.4); Monocytes # 1.3 K/mcL (0.0-1.3); Monocytes % 8.6 %; Neutrophils # 10.9 K/mcL (1.6-8.9); Platelet Count 361 K/mcL (140-400); Red Cell Distribution Width 13.1 % (11.5-14.5); White Blood Count 14.8 K/mcL (4.3-11.1)
[2022-03-05 13:00] LABS: Bacteria,Urine Few per hpf (None-Few); Bilirubin,Urine Negative (Negative); Blood,Urine Negative (Negative); Budding Yeast,Urine Moderate per hpf (None Seen); Clarity,Urine Turbid (Clear); Color,Urine Yellow (Yellow); Glucose,Urine (UA) Normal (Normal); Ketones,Urine Negative (Negative); Leukocyte Esterase,Urine Moderate (Negative); Mucus,Urine Few per lpf (None-Few); Nitrite,Urine Negative (Negative); Protein,Urine 100 mg/dL (Neg-Trace); Specific Gravity,Urine > 1.030 (1.010-1.025); Squamous Epithelial Cell,Urine Few per hpf (None-Few); Urobilinogen,Urine Normal (Normal); WBC,Urine 50-100 per hpf (0-3)
[2022-03-05] MEDS: Ringers Solution, Lactated 1,000 ML IVC SCH ×2 (13:30→22:40)
[2022-03-05] MEDS ORDERED: 0.9 % Sodium Chloride 250 ML ONE (19:38)
[2022-03-06] MEDS: *HR* OxyCODONE Oral Soln 5 MG/5 ML UD.LIQ GTUBE PRN ×4 (00:13→23:06)
[2022-03-06] MEDS: Insulin LISPRO 300 UNITS/3 ML VIAL SUBQ SCH ×5 (00:42→16:23)
[2022-03-06] MEDS: Nystatin POWDER 30 GM BOTTLE TP SCH ×3 (00:45→21:00)
[2022-03-06] MEDS: Piperacillin/Tazobactam 3.375 GM in 0.9 % Sodium Chloride Mini Bag 100 ML IVPB SCH ×3 (04:04→20:39)
[2022-03-06 05:18] LABS: Alanine Aminotransferase 51 Units/L (7-52); Albumin 3.4 g/dL (3.5-5.7); Albumin/Globulin Ratio 1.1 (1.1-2.2); Alkaline Phosphatase 94 Units/L (34-104); Aspartate Amino Transferase 64 Units/L (13-39); BUN/Creatinine Ratio 35 (6-26); Bilirubin,Total 0.5 mg/dL (0.3-1.0); Blood Urea Nitrogen 28 mg/dL (6-20); Calcium 8.6 mg/dL (8.6-10.3); Carbon Dioxide 30 mEq/L (23-29); Chloride 104 mEq/L (98-107); Globulin 3.1 g/dL (2.4-3.5); Glucose 86 mg/dL (70-105); Magnesium 1.9 mg/dL (1.6-2.6); Osmolality,Calculated 289 (280-300); Phosphorous 2.6 mg/dL (2.7-4.5); Potassium 3.8 mEq/L (3.5-5.1); Sodium 137 mEq/L (136-145); Total Protein 6.5 g/dL (6.4-8.9); eGFR For African Americans > 60 (> 60); eGFR For Non-African Americans > 60 (> 60)
[2022-03-06] MEDS: *HR* Heparin 5,000 UNIT/ML VIAL SQ SCH ×3 (05:51→20:42)
[2022-03-06] MEDS ORDERED: *HR* LORazepam 2 MG/ML VIAL IVP ONE (12:11)
[2022-03-06] MEDS: *HR* LORazepam 2 MG/ML VIAL IVP ONE (12:33)
[2022-03-06] MEDS ORDERED: Fluconazole 150 MG TABLET GTUBE ONE (12:34)
[2022-03-06] MEDS: Ringers Solution, Lactated 1,000 ML IVC SCH (14:00)
[2022-03-07] MEDS: Vancomycin 1,250 MG/262.5 ML IV.SOLN IVPB SCH ×2 (00:43→10:58)
[2022-03-07] MEDS: Ringers Solution, Lactated 1,000 ML IVC SCH (01:40)
[2022-03-07] MEDS: Insulin LISPRO 300 UNITS/3 ML VIAL SUBQ SCH ×4 (03:18→13:40)
[2022-03-07] MEDS: Piperacillin/Tazobactam 3.375 GM in 0.9 % Sodium Chloride Mini Bag 100 ML IVPB SCH (03:43)
[2022-03-07 03:56] LABS: Basophils # 0.1 K/mcL (0.0-0.2); Basophils % 0.9 %; Eosinophils # 0.3 K/mcL (0.0-0.6); Eosinophils % 3.4 %; Hematocrit 32.5 % (35.3-44.9); Immature Granulocytes % 0.2 % (0-4); Lymphocytes # 1.9 K/mcL (0.6-4.6); Lymphocytes % 21.1 %; Mean Corpuscular HGB Conc 34.2 g/dL (31.6-35.5); Mean Corpuscular Hemoglobin 30.7 pg (28.0-33.3); Mean Platelet Volume 11.2 fL (9.4-12.4); Monocytes # 0.8 K/mcL (0.0-1.3); Monocytes % 9.4 %; Neutrophils # 5.8 K/mcL (1.6-8.9); Platelet Count 293 K/mcL (140-400); Red Blood Count 3.61 M/mcL (3.82-4.97); Red Cell Distribution Width 12.8 % (11.5-14.5); White Blood Count 8.9 K/mcL (4.3-11.1)
[2022-03-07 04:00] LABS: Hemoglobin 11.1 g/dL (11.5-15.4)
[2022-03-07 04:19] LABS: Alanine Aminotransferase 111 Units/L (7-52); Albumin 3.1 g/dL (3.5-5.7); Albumin/Globulin Ratio 1.1 (1.1-2.2); Alkaline Phosphatase 191 Units/L (34-104); Aspartate Amino Transferase 164 Units/L (13-39); BUN/Creatinine Ratio 27 (6-26); Bilirubin,Total 0.5 mg/dL (0.3-1.0); Blood Urea Nitrogen 18 mg/dL (6-20); Calcium 8.5 mg/dL (8.6-10.3); Carbon Dioxide 28 mEq/L (23-29); Chloride 105 mEq/L (98-107); Globulin 2.7 g/dL (2.4-3.5); Glucose 105 mg/dL (70-105); Magnesium 1.8 mg/dL (1.6-2.6); Osmolality,Calculated 288 (280-300); Phosphorous 3.1 mg/dL (2.7-4.5); Potassium 3.4 mEq/L (3.5-5.1); Sodium 138 mEq/L (136-145); Total Protein 5.8 g/dL (6.4-8.9); eGFR For African Americans > 60 (> 60); eGFR For Non-African Americans > 60 (> 60)
[2022-03-07] MEDS: *HR* Heparin 5,000 UNIT/ML VIAL SQ SCH ×2 (05:51→13:47)
[2022-03-07] MEDS: Nystatin POWDER 30 GM BOTTLE TP SCH (07:47)
[2022-03-07 11:07] VITALS: BP 134/96; PULSE 92; TEMP 97.1; O2SAT 97
[2022-03-07 14:48] LABS: Influenza A PCR Negative (Negative); Influenza B PCR Negative (Negative); Resp. Syncytial Virus PCR Negative (Negative)
[2022-03-07 14:59] LABS: SARS-CoV-2 by PCR (In House) Negative (Negative)
== END 2022-03-07 17:43 | DRG 812 ==
LOC: EMEROOARM 15:05 → SUATTDRO 19:08 → ICNU 19:08 → 2NNU 02-21 17:32 → 2NENU 02-22 22:23
PROVIDERS: ADMIT Pediatrics; ATTEND Internal Medicine

== ENCOUNTER 2022-05-29 14:41 | Inpatient (IN) ==
[2022-05-29 15:51] LABS: Basophils % 0.8 %; Eosinophils # 0.1 K/mcL (0.0-0.6); Eosinophils % 1.9 %; Hematocrit 41.1 % (35.3-44.9); Hemoglobin 14.1 g/dL (11.5-15.4); Immature Granulocytes % 0.2 % (0-4); Lymphocytes # 1.7 K/mcL (0.6-4.6); Lymphocytes % 35.6 %; Mean Corpuscular HGB Conc 34.3 g/dL (31.6-35.5); Mean Corpuscular Hemoglobin 29.9 pg (28.0-33.3); Mean Corpuscular Volume 87.3 fL (83.0-100.0); Mean Platelet Volume 10.1 fL (9.4-12.4); Monocytes # 0.5 K/mcL (0.0-1.3); Monocytes % 9.7 %; Neutrophils # 2.5 K/mcL (1.6-8.9); Platelet Count 359 K/mcL (140-400); Red Blood Count 4.71 M/mcL (3.82-4.97); Red Cell Distribution Width 12.4 % (11.5-14.5); Segmented Neutrophils % 51.8 %; White Blood Count 4.9 K/mcL (4.3-11.1)
[2022-05-29 16:14] LABS: Acetaminophen < 10 mcg/mL (10-20); Alanine Aminotransferase 26 Units/L (7-52); Albumin 4.1 g/dL (3.5-5.7); Albumin/Globulin Ratio 1.2 (1.1-2.2); Alkaline Phosphatase 114 Units/L (34-104); Aspartate Amino Transferase 27 Units/L (13-39); BUN/Creatinine Ratio 22 (6-26); Bilirubin,Direct 0.1 mg/dL (0.0-0.2); Bilirubin,Indirect 0.4 mg/dL (0.0-1.0); Bilirubin,Total 0.5 mg/dL (0.3-1.0); Blood Urea Nitrogen 14 mg/dL (6-20); Calcium 9.8 mg/dL (8.6-10.3); Carbon Dioxide 31 mEq/L (23-29); Chloride 100 mEq/L (98-107); Chol/HDL Ratio 3.6 (0-4.9); Cholesterol 135 mg/dL (< 200); Ethanol < 10 mg/dL (Less than 10); Globulin 3.4 g/dL (2.4-3.5); Glucose 112 mg/dL (70-105); HDL Cholesterol 38 mg/dL (40-59); LDL Cholesterol,Calculated 83 mg/dL (< 100); Osmolality,Calculated 283 (280-300); Potassium 3.9 mEq/L (3.5-5.1); Salicylate < 2.5 mg/dL (15.0-30.0); Sodium 136 mEq/L (136-145); Total Protein 7.5 g/dL (6.4-8.9); Triglycerides 72 mg/dL (< 150); eGFR For African Americans > 60 (> 60); eGFR For Non-African Americans > 60 (> 60)
[2022-05-29 17:08] LABS: Amorphous Sediment,Urine Few per hpf (None-Few); Bilirubin,Urine Negative (Negative); Blood,Urine Negative (Negative); Clarity,Urine Turbid (Clear); Color,Urine Yellow (Yellow); Glucose,Urine (UA) Normal (Normal); Ketones,Urine Negative (Negative); Leukocyte Esterase,Urine Small (Negative); Mucus,Urine Few per lpf (None-Few); Nitrite,Urine Negative (Negative); Protein,Urine 30 mg/dL (Neg-Trace); RBC,Urine 0-3 per hpf (0-3); Specific Gravity,Urine 1.023 (1.010-1.025); Squamous Epithelial Cell,Urine Moderate per hpf (None-Few); Urobilinogen,Urine Normal (Normal)
[2022-05-29 17:16] LABS: Amphetamine Screen,Urine Negative ng/mL (Cutoff=1000); Barbiturate Screen,Urine Negative ng/mL (Cutoff=200); Benzodiazepines Screen,Urine Positive ng/mL (Cutoff=200); Cannabinoid Screen,Urine Negative ng/mL (Cutoff = 50); Cocaine Screen,Urine Negative ng/mL (Cutoff= 300); Opiate Screen,Urine Negative ng/mL (Cutoff=300); Phencyclidine Screen,Urine Negative ng/mL (Cutoff=25)
[2022-05-29] MEDS ORDERED: Acetaminophen 325 MG TABLET PO PRN (17:58)
[2022-05-29] MEDS ORDERED: Naloxone 0.4 MG/ML INJ IVP PRN (17:58)
[2022-05-29] MEDS ORDERED: Ondansetron 4 MG/2 ML VIAL IVP PRN (17:58)
[2022-05-29 18:17] LABS: Estimated Average Glucose 94 mg/dl; Hemoglobin A1C 4.9 %
[2022-05-30] MEDS: Gabapentin 300 MG CAPSULE PO SCH ×2 (01:23→20:29)
[2022-05-30] MEDS: Melatonin 3 MG TABLET PO SCH ×2 (01:23→20:28)
[2022-05-30] MEDS: traZODone 50 MG TABLET PO SCH ×2 (01:23→20:29)
[2022-05-30] MEDS: cefTRIAXone 1,000 MG in 0.9 % Sodium Chloride 10 ML IVP SCH ×2 (02:16→08:05)
[2022-05-30] MEDS: *HR* Enoxaparin 40 MG/0.4 ML SYRINGE SQ SCH (05:43)
[2022-05-30] MEDS ORDERED: *HR* Heparin 5,000 UNIT/ML VIAL SQ SCH (06:00)
[2022-05-30] MEDS: FLUoxetine HCl 10 MG CAPSULE PO SCH (08:06)
[2022-05-30] MEDS: Cholecalciferol (D-3) 1,000 UNIT (25MCG) TABLET PO SCH (08:06)
[2022-05-31 06:00] LABS: Hematocrit 41.1 % (35.3-44.9); Mean Corpuscular HGB Conc 34.1 g/dL (31.6-35.5); Mean Corpuscular Hemoglobin 29.8 pg (28.0-33.3); Mean Corpuscular Volume 87.4 fL (83.0-100.0); Mean Platelet Volume 10.8 fL (9.4-12.4); Platelet Count 345 K/mcL (140-400); Red Cell Distribution Width 12.4 % (11.5-14.5); White Blood Count 6.1 K/mcL (4.3-11.1)
[2022-05-31] MEDS: *HR* Enoxaparin 40 MG/0.4 ML SYRINGE SQ SCH (06:00)
[2022-05-31 06:21] LABS: BUN/Creatinine Ratio 24 (6-26); Blood Urea Nitrogen 16 mg/dL (6-20); Calcium 9.8 mg/dL (8.6-10.3); Carbon Dioxide 27 mEq/L (23-29); Chloride 102 mEq/L (98-107); Glucose 67 mg/dL (70-105); Osmolality,Calculated 285 (280-300); Potassium 3.7 mEq/L (3.5-5.1); Sodium 138 mEq/L (136-145); eGFR For African Americans > 60 (> 60); eGFR For Non-African Americans > 60 (> 60)
[2022-05-31] MEDS: FLUoxetine HCl 10 MG CAPSULE PO SCH (08:40)
[2022-05-31] MEDS: Cholecalciferol (D-3) 1,000 UNIT (25MCG) TABLET PO SCH (08:41)
[2022-05-31] MEDS: cefTRIAXone 1,000 MG in 0.9 % Sodium Chloride 10 ML IVP SCH (08:57)
[2022-05-31] MEDS: Haloperidol Lactate 5 MG/ML VIAL IVP PRN ×2 (08:57→20:58)
[2022-05-31] MEDS ORDERED: 0.9 % Sodium Chloride 1,000 ML IVC SCH (11:15)
[2022-05-31] MEDS ORDERED: 0.9 % Sodium Chloride 1,000 ML IVC ONE (11:35)
[2022-05-31] MEDS: Melatonin 3 MG TABLET PO SCH (19:51)
[2022-05-31] MEDS: Gabapentin 300 MG CAPSULE PO SCH (19:51)
[2022-05-31] MEDS: traZODone 50 MG TABLET PO SCH (19:52)
[2022-06-01] MEDS: *HR* Enoxaparin 40 MG/0.4 ML SYRINGE SQ SCH (04:59)
[2022-06-01] MEDS: cefTRIAXone 1,000 MG in 0.9 % Sodium Chloride 10 ML IVP SCH (09:36)
[2022-06-01] MEDS: Cholecalciferol (D-3) 1,000 UNIT (25MCG) TABLET PO SCH (09:39)
[2022-06-01] MEDS: FLUoxetine HCl 10 MG CAPSULE PO SCH (09:39)
[2022-06-01] MEDS ORDERED: E-Z-PAQUE (BARIUM SULF) SUSP 1 BOTTLE PO ONE ×2 (13:11→14:52)
[2022-06-01] MEDS ORDERED: E-Z-HD (BARIUM SULF) SUSPENSION PO ONE ×2 (13:11→14:52)
[2022-06-01] MEDS: traZODone 50 MG TABLET PO SCH (20:06)
[2022-06-01] MEDS: Melatonin 3 MG TABLET PO SCH (20:06)
[2022-06-01] MEDS: Gabapentin 300 MG CAPSULE PO SCH (20:06)
[2022-06-02] MEDS: *HR* Enoxaparin 40 MG/0.4 ML SYRINGE SQ SCH (06:24)
[2022-06-02] MEDS: FLUoxetine HCl 10 MG CAPSULE PO SCH (09:07)
[2022-06-02] MEDS: Cholecalciferol (D-3) 1,000 UNIT (25MCG) TABLET PO SCH (09:07)
[2022-06-02] MEDS: Melatonin 3 MG TABLET PO SCH (21:03)
[2022-06-02] MEDS: traZODone 50 MG TABLET PO SCH (21:04)
[2022-06-02] MEDS: Gabapentin 300 MG CAPSULE PO SCH (21:04)
[2022-06-03] MEDS: *HR* Enoxaparin 40 MG/0.4 ML SYRINGE SQ SCH (05:03)
[2022-06-03] MEDS: Cholecalciferol (D-3) 1,000 UNIT (25MCG) TABLET PO SCH (08:56)
[2022-06-03] MEDS: FLUoxetine HCl 10 MG CAPSULE PO SCH (08:56)
[2022-06-03] MEDS: *HR* LORazepam 1 MG TABLET PO PRN (16:36)
[2022-06-03] MEDS: Melatonin 3 MG TABLET PO SCH (21:32)
[2022-06-03] MEDS: Gabapentin 300 MG CAPSULE PO SCH (21:32)
[2022-06-03] MEDS: traZODone 50 MG TABLET PO SCH (21:32)
[2022-06-04] MEDS: *HR* LORazepam 1 MG TABLET PO PRN (00:33)
[2022-06-04] MEDS: *HR* Enoxaparin 40 MG/0.4 ML SYRINGE SQ SCH (05:47)
[2022-06-04] MEDS: Cholecalciferol (D-3) 1,000 UNIT (25MCG) TABLET PO SCH (10:00)
[2022-06-04] MEDS: FLUoxetine HCl 10 MG CAPSULE PO SCH (10:00)
[2022-06-04] MEDS: Gabapentin 300 MG CAPSULE PO SCH (22:15)
[2022-06-04] MEDS: Melatonin 3 MG TABLET PO SCH (22:15)
[2022-06-04] MEDS: traZODone 50 MG TABLET PO SCH (22:16)
[2022-06-05] MEDS: *HR* Enoxaparin 40 MG/0.4 ML SYRINGE SQ SCH (05:01)
[2022-06-05] MEDS: Cholecalciferol (D-3) 1,000 UNIT (25MCG) TABLET PO SCH (09:28)
[2022-06-05] MEDS: FLUoxetine HCl 10 MG CAPSULE PO SCH (09:29)
[2022-06-05] MEDS ORDERED: *HR* LORazepam 2 MG/ML VIAL IM STA (19:44)
[2022-06-05] MEDS: Melatonin 3 MG TABLET PO SCH (22:40)
[2022-06-05] MEDS: Gabapentin 300 MG CAPSULE PO SCH (22:42)
[2022-06-05] MEDS: traZODone 50 MG TABLET PO SCH (22:42)
[2022-06-06] MEDS: *HR* Enoxaparin 40 MG/0.4 ML SYRINGE SQ SCH (05:49)
[2022-06-06 10:43] LABS: INR 1.2; Prothrombin Time 13.5 Seconds (9.4-12.1)
[2022-06-06] MEDS: Cholecalciferol (D-3) 1,000 UNIT (25MCG) TABLET PO SCH (10:43)
[2022-06-06] MEDS: FLUoxetine HCl 10 MG CAPSULE PO SCH (10:43)
[2022-06-06] MEDS ORDERED: ceFAZolin 2,000 MG in Water for inj. (sterile) 20 ML IVP ONE (13:03)
[2022-06-06] MEDS ORDERED: Lidocaine -MPF 2% 5 ML VIAL ONE (14:23)
[2022-06-06] MEDS ORDERED: EPHEDrine 50 MG/ML VIAL ONE (14:41)
[2022-06-06] MEDS: Melatonin 3 MG TABLET PO SCH (20:22)
[2022-06-06] MEDS: Gabapentin 300 MG CAPSULE PO SCH (20:22)
[2022-06-06] MEDS: *HR* LORazepam 1 MG TABLET PO PRN (20:22)
[2022-06-06] MEDS: traZODone 50 MG TABLET PO SCH (20:22)
[2022-06-07] MEDS ORDERED: D5% in Water 1,000 ML IVC PRN (03:49)
[2022-06-07] MEDS ORDERED: *HR* Dextrose 50 % in Water (Syg) 50 ML SYRINGE IVP PRN (03:49)
[2022-06-07] MEDS ORDERED: Dextrose Gel 15 GM/37.5 ML TUBE PO PRN ×2 (03:49)
[2022-06-07] MEDS: *HR* Enoxaparin 40 MG/0.4 ML SYRINGE SQ SCH (04:19)
[2022-06-07 06:32] LABS: Basophils % 0.6 %; Eosinophils # 0.1 K/mcL (0.0-0.6); Hematocrit 36.4 % (35.3-44.9); Hemoglobin 12.2 g/dL (11.5-15.4); Immature Granulocytes % 0.2 % (0-4); Lymphocytes # 1.8 K/mcL (0.6-4.6); Lymphocytes % 27.3 %; Mean Corpuscular HGB Conc 33.5 g/dL (31.6-35.5); Mean Corpuscular Hemoglobin 29.7 pg (28.0-33.3); Mean Corpuscular Volume 88.6 fL (83.0-100.0); Mean Platelet Volume 11.3 fL (9.4-12.4); Monocytes # 0.7 K/mcL (0.0-1.3); Monocytes % 10.1 %; Platelet Count 267 K/mcL (140-400); Red Blood Count 4.11 M/mcL (3.82-4.97); Red Cell Distribution Width 12.6 % (11.5-14.5); Segmented Neutrophils % 59.8 %; White Blood Count 6.7 K/mcL (4.3-11.1)
[2022-06-07 06:51] LABS: BUN/Creatinine Ratio 28 (6-26); Blood Urea Nitrogen 17 mg/dL (6-20); Calcium 9.2 mg/dL (8.6-10.3); Carbon Dioxide 30 mEq/L (23-29); Chloride 102 mEq/L (98-107); Glucose 89 mg/dL (70-105); Osmolality,Calculated 285 (280-300); Phosphorous 3.8 mg/dL (2.7-4.5); Potassium 3.4 mEq/L (3.5-5.1); Sodium 137 mEq/L (136-145)
[2022-06-07] MEDS: FLUoxetine HCl 10 MG CAPSULE PO SCH (09:37)
[2022-06-07] MEDS: Cholecalciferol (D-3) 1,000 UNIT (25MCG) TABLET PO SCH (09:37)
[2022-06-07] MEDS ORDERED: Haloperidol Lactate 5 MG/ML VIAL IVP PRN (14:49)
[2022-06-07] MEDS ORDERED: Haloperidol Oral Conc 10 MG/5 ML UDC PO PRN (14:49)
[2022-06-07] MEDS: Melatonin 3 MG TABLET PO SCH (19:31)
[2022-06-07] MEDS: Gabapentin 300 MG CAPSULE PO SCH (19:32)
[2022-06-07] MEDS: traZODone 50 MG TABLET PO SCH (19:32)
[2022-06-08 03:48] LABS: BUN/Creatinine Ratio 27 (6-26); Blood Urea Nitrogen 13 mg/dL (6-20); Calcium 9.1 mg/dL (8.6-10.3); Carbon Dioxide 24 mEq/L (23-29); Chloride 101 mEq/L (98-107); Glucose 71 mg/dL (70-105); Osmolality,Calculated 275 (280-300); Potassium 3.5 mEq/L (3.5-5.1); Sodium 133 mEq/L (136-145)
[2022-06-08] MEDS: *HR* Enoxaparin 40 MG/0.4 ML SYRINGE SQ SCH (05:09)
[2022-06-08] MEDS: FLUoxetine HCl 10 MG CAPSULE PO SCH (07:29)
[2022-06-08] MEDS: Cholecalciferol (D-3) 1,000 UNIT (25MCG) TABLET PO SCH (07:29)
[2022-06-08] MEDS: Melatonin 3 MG TABLET PO SCH (20:36)
[2022-06-08] MEDS: traZODone 50 MG TABLET PO SCH (23:27)
[2022-06-08] MEDS: Gabapentin 300 MG CAPSULE PO SCH (23:27)
[2022-06-08] MEDS ORDERED: *HR* LORazepam 2 MG/ML VIAL IVP ONE (23:49)
[2022-06-09] MEDS: *HR* Enoxaparin 40 MG/0.4 ML SYRINGE SQ SCH (05:41)
[2022-06-09 05:46] LABS: Basophils % 0.5 %; Eosinophils # 0.2 K/mcL (0.0-0.6); Eosinophils % 1.7 %; Hematocrit 37.4 % (35.3-44.9); Hemoglobin 12.7 g/dL (11.5-15.4); Immature Granulocytes % 0.2 % (0-4); Lymphocytes # 1.9 K/mcL (0.6-4.6); Lymphocytes % 21.2 %; Mean Corpuscular Hemoglobin 29.3 pg (28.0-33.3); Mean Corpuscular Volume 86.4 fL (83.0-100.0); Mean Platelet Volume 11.8 fL (9.4-12.4); Monocytes # 0.9 K/mcL (0.0-1.3); Monocytes % 10.2 %; Neutrophils # 5.9 K/mcL (1.6-8.9); Platelet Count 275 K/mcL (140-400); Red Blood Count 4.33 M/mcL (3.82-4.97); Red Cell Distribution Width 11.9 % (11.5-14.5); Segmented Neutrophils % 66.2 %; White Blood Count 8.9 K/mcL (4.3-11.1)
[2022-06-09 06:03] LABS: BUN/Creatinine Ratio 20 (6-26); Blood Urea Nitrogen 10 mg/dL (6-20); Calcium 9.4 mg/dL (8.6-10.3); Carbon Dioxide 31 mEq/L (23-29); Chloride 100 mEq/L (98-107); Glucose 101 mg/dL (70-105); Osmolality,Calculated 281 (280-300); Phosphorous 3.1 mg/dL (2.7-4.5); Potassium 3.5 mEq/L (3.5-5.1); Sodium 136 mEq/L (136-145)
[2022-06-09] MEDS: Cholecalciferol (D-3) 1,000 UNIT (25MCG) TABLET PO SCH (08:46)
[2022-06-09] MEDS: FLUoxetine HCl 10 MG CAPSULE PO SCH (08:46)
[2022-06-09] MEDS: Gabapentin 300 MG CAPSULE PO SCH (20:12)
[2022-06-09] MEDS: traZODone 50 MG TABLET PO SCH (20:49)
[2022-06-09] MEDS: Melatonin 3 MG TABLET PO SCH (20:49)
[2022-06-10] MEDS: *HR* Enoxaparin 40 MG/0.4 ML SYRINGE SQ SCH (05:22)
[2022-06-10 05:53] LABS: Alanine Aminotransferase 9 Units/L (7-52); Albumin 3.8 g/dL (3.5-5.7); Albumin/Globulin Ratio 1.2 (1.1-2.2); Alkaline Phosphatase 78 Units/L (34-104); Aspartate Amino Transferase 14 Units/L (13-39); BUN/Creatinine Ratio 25 (6-26); Bilirubin,Total 0.3 mg/dL (0.3-1.0); Blood Urea Nitrogen 12 mg/dL (6-20); Calcium 9.1 mg/dL (8.6-10.3); Carbon Dioxide 31 mEq/L (23-29); Chloride 102 mEq/L (98-107); Globulin 3.2 g/dL (2.4-3.5); Glucose 99 mg/dL (70-105); Osmolality,Calculated 286 (280-300); Potassium 3.6 mEq/L (3.5-5.1); Sodium 138 mEq/L (136-145)
[2022-06-10] MEDS: FLUoxetine HCl 10 MG CAPSULE PO SCH (09:28)
[2022-06-10] MEDS: Cholecalciferol (D-3) 1,000 UNIT (25MCG) TABLET PO SCH (09:29)
[2022-06-10] MEDS: Melatonin 3 MG TABLET PO SCH (21:41)
[2022-06-10] MEDS: Gabapentin 300 MG CAPSULE PO SCH (21:41)
[2022-06-10] MEDS: traZODone 50 MG TABLET PO SCH (21:41)
[2022-06-11] MEDS: *HR* Enoxaparin 40 MG/0.4 ML SYRINGE SQ SCH (05:09)
[2022-06-11] MEDS: FLUoxetine HCl 10 MG CAPSULE PO SCH (08:56)
[2022-06-11] MEDS: Cholecalciferol (D-3) 1,000 UNIT (25MCG) TABLET PO SCH (08:57)
[2022-06-11] MEDS: traZODone 50 MG TABLET PO SCH (20:01)
[2022-06-11] MEDS: Melatonin 3 MG TABLET PO SCH (20:01)
[2022-06-11] MEDS: Gabapentin 300 MG CAPSULE PO SCH (20:01)
[2022-06-12] MEDS: *HR* Enoxaparin 40 MG/0.4 ML SYRINGE SQ SCH (06:18)
[2022-06-12] MEDS: FLUoxetine HCl 10 MG CAPSULE PO SCH (07:54)
[2022-06-12] MEDS: Cholecalciferol (D-3) 1,000 UNIT (25MCG) TABLET PO SCH (07:54)
[2022-06-12] MEDS: *HR* LORazepam 1 MG TABLET PO PRN (14:14)
[2022-06-12] MEDS: Melatonin 3 MG TABLET PO SCH (21:42)
[2022-06-12] MEDS: traZODone 50 MG TABLET PO SCH (21:42)
[2022-06-12] MEDS: Gabapentin 300 MG CAPSULE PO SCH (21:42)
[2022-06-13] MEDS: *HR* Enoxaparin 40 MG/0.4 ML SYRINGE SQ SCH (06:10)
[2022-06-13] MEDS: Cholecalciferol (D-3) 1,000 UNIT (25MCG) TABLET PO SCH (09:03)
[2022-06-13] MEDS: FLUoxetine HCl 10 MG CAPSULE PO SCH (09:04)
[2022-06-13] MEDS: *HR* LORazepam 1 MG TABLET PO PRN (17:40)
[2022-06-13] MEDS: traZODone 50 MG TABLET PO SCH (21:32)
[2022-06-13] MEDS: Melatonin 3 MG TABLET PO SCH (21:33)
[2022-06-13] MEDS: Gabapentin 300 MG CAPSULE PO SCH (21:33)
[2022-06-14] MEDS: *HR* Enoxaparin 40 MG/0.4 ML SYRINGE SQ SCH (05:37)
[2022-06-14] MEDS: FLUoxetine HCl 10 MG CAPSULE PO SCH (09:43)
[2022-06-14] MEDS: Cholecalciferol (D-3) 1,000 UNIT (25MCG) TABLET PO SCH (09:43)
[2022-06-14] MEDS: Gabapentin 100 MG CAPSULE PO SCH ×2 (15:42→20:24)
[2022-06-14] MEDS: *HR* LORazepam 1 MG TABLET PO PRN (15:42)
[2022-06-14] MEDS: traZODone 50 MG TABLET PO SCH (20:24)
[2022-06-14] MEDS: Melatonin 3 MG TABLET PO SCH (20:24)
[2022-06-15] MEDS: *HR* Enoxaparin 40 MG/0.4 ML SYRINGE SQ SCH (04:45)
[2022-06-15] MEDS: FLUoxetine HCl 10 MG CAPSULE PO SCH (09:51)
[2022-06-15] MEDS: Cholecalciferol (D-3) 1,000 UNIT (25MCG) TABLET PO SCH (09:51)
[2022-06-15] MEDS: *HR* LORazepam 1 MG TABLET PO PRN ×2 (09:53→20:58)
[2022-06-15] MEDS: Gabapentin 100 MG CAPSULE PO SCH ×2 (09:53→20:45)
[2022-06-15] MEDS: QUEtiapine Fumarate 25 MG TABLET PO SCH (10:49)
[2022-06-15] MEDS: Saliva Stimulant 44.3ml BOTTLE PO SCH (16:17)
[2022-06-15] MEDS: Melatonin 3 MG TABLET PO SCH (20:45)
[2022-06-15] MEDS: traZODone 50 MG TABLET PO SCH (20:46)
[2022-06-16] MEDS: Saliva Stimulant 44.3ml BOTTLE PO SCH ×3 (01:15→15:49)
[2022-06-16] MEDS: *HR* Enoxaparin 40 MG/0.4 ML SYRINGE SQ SCH (04:20)
[2022-06-16] MEDS: QUEtiapine Fumarate 25 MG TABLET PO SCH (10:13)
[2022-06-16] MEDS: FLUoxetine HCl 10 MG CAPSULE PO SCH (10:13)
[2022-06-16] MEDS: Cholecalciferol (D-3) 1,000 UNIT (25MCG) TABLET PO SCH (10:13)
[2022-06-16] MEDS: *HR* LORazepam 1 MG TABLET PO PRN (13:26)
[2022-06-16] MEDS: Melatonin 3 MG TABLET PO SCH (21:27)
[2022-06-16] MEDS: Gabapentin 100 MG CAPSULE PO SCH (21:28)
[2022-06-16] MEDS: traZODone 50 MG TABLET PO SCH (21:28)
[2022-06-17] MEDS: Saliva Stimulant 44.3ml BOTTLE PO SCH ×3 (01:21→17:20)
[2022-06-17 02:27] LABS: Basophils # 0.1 K/mcL (0.0-0.2); Basophils % 0.7 %; Eosinophils # 0.2 K/mcL (0.0-0.6); Eosinophils % 1.5 %; Hematocrit 39.8 % (35.3-44.9); Hemoglobin 13.1 g/dL (11.5-15.4); Immature Granulocytes % 0.4 % (0-4); Lymphocytes # 2.4 K/mcL (0.6-4.6); Lymphocytes % 23.1 %; Mean Corpuscular HGB Conc 32.9 g/dL (31.6-35.5); Mean Corpuscular Hemoglobin 29.7 pg (28.0-33.3); Mean Corpuscular Volume 90.2 fL (83.0-100.0); Mean Platelet Volume 11.3 fL (9.4-12.4); Monocytes # 0.8 K/mcL (0.0-1.3); Monocytes % 7.9 %; Neutrophils # 6.9 K/mcL (1.6-8.9); Platelet Count 314 K/mcL (140-400); Red Blood Count 4.41 M/mcL (3.82-4.97); Segmented Neutrophils % 66.4 %; White Blood Count 10.4 K/mcL (4.3-11.1)
[2022-06-17 02:46] LABS: Alanine Aminotransferase 15 Units/L (7-52); Albumin 4.2 g/dL (3.5-5.7); Albumin/Globulin Ratio 1.3 (1.1-2.2); Alkaline Phosphatase 71 Units/L (34-104); Aspartate Amino Transferase 17 Units/L (13-39); BUN/Creatinine Ratio 34 (6-26); Bilirubin,Total 0.4 mg/dL (0.3-1.0); Blood Urea Nitrogen 22 mg/dL (6-20); Calcium 9.9 mg/dL (8.6-10.3); Carbon Dioxide 34 mEq/L (23-29); Chloride 102 mEq/L (98-107); Globulin 3.3 g/dL (2.4-3.5); Glucose 82 mg/dL (70-105); Magnesium 2.4 mg/dL (1.6-2.6); Osmolality,Calculated 290 (280-300); Phosphorous 4.3 mg/dL (2.7-4.5); Potassium 3.8 mEq/L (3.5-5.1); Sodium 139 mEq/L (136-145); Total Protein 7.5 g/dL (6.4-8.9)
[2022-06-17] MEDS: *HR* Enoxaparin 40 MG/0.4 ML SYRINGE SQ SCH (05:43)
[2022-06-17] MEDS: QUEtiapine Fumarate 25 MG TABLET PO SCH (10:21)
[2022-06-17] MEDS: FLUoxetine HCl 10 MG CAPSULE PO SCH (10:21)
[2022-06-17] MEDS: Cholecalciferol (D-3) 1,000 UNIT (25MCG) TABLET PO SCH (10:21)
[2022-06-17] MEDS: *HR* LORazepam 1 MG TABLET PO PRN (17:17)
[2022-06-17] MEDS: Melatonin 3 MG TABLET PO SCH (21:13)
[2022-06-17] MEDS: Gabapentin 100 MG CAPSULE PO SCH (21:20)
[2022-06-17] MEDS: traZODone 50 MG TABLET PO SCH (21:20)
[2022-06-18] MEDS: Saliva Stimulant 44.3ml BOTTLE PO SCH ×3 (01:38→17:07)
[2022-06-18] MEDS: *HR* Enoxaparin 40 MG/0.4 ML SYRINGE SQ SCH (05:40)
[2022-06-18] MEDS: QUEtiapine Fumarate 25 MG TABLET PO SCH ×2 (09:16→21:21)
[2022-06-18] MEDS: Cholecalciferol (D-3) 1,000 UNIT (25MCG) TABLET PO SCH (09:16)
[2022-06-18] MEDS: FLUoxetine HCl 10 MG CAPSULE PO SCH (09:16)
[2022-06-18] MEDS: Melatonin 3 MG TABLET PO SCH (21:20)
[2022-06-18] MEDS: Gabapentin 100 MG CAPSULE PO SCH (21:21)
[2022-06-18] MEDS: traZODone 50 MG TABLET PO SCH (21:21)
[2022-06-19] MEDS: Saliva Stimulant 44.3ml BOTTLE PO SCH ×3 (00:20→15:19)
[2022-06-19] MEDS: *HR* Enoxaparin 40 MG/0.4 ML SYRINGE SQ SCH (05:50)
[2022-06-19] MEDS: QUEtiapine Fumarate 25 MG TABLET PO SCH ×2 (09:06→21:14)
[2022-06-19] MEDS: FLUoxetine HCl 10 MG CAPSULE PO SCH (09:07)
[2022-06-19] MEDS: Cholecalciferol (D-3) 1,000 UNIT (25MCG) TABLET PO SCH (09:07)
[2022-06-19] MEDS: Gabapentin 100 MG CAPSULE PO SCH (21:14)
[2022-06-19] MEDS: traZODone 50 MG TABLET PO SCH (21:14)
[2022-06-19] MEDS: Melatonin 3 MG TABLET PO SCH (21:14)
[2022-06-20] MEDS: Saliva Stimulant 44.3ml BOTTLE PO SCH ×3 (00:12→15:37)
[2022-06-20] MEDS: *HR* Enoxaparin 40 MG/0.4 ML SYRINGE SQ SCH (05:24)
[2022-06-20] MEDS: FLUoxetine HCl 10 MG CAPSULE PO SCH (09:08)
[2022-06-20] MEDS: Cholecalciferol (D-3) 1,000 UNIT (25MCG) TABLET PO SCH (09:08)
[2022-06-20] MEDS: QUEtiapine Fumarate 25 MG TABLET PO SCH ×2 (09:08→20:24)
[2022-06-20] MEDS: *HR* LORazepam 1 MG TABLET PO PRN (11:46)
[2022-06-20] MEDS: Melatonin 3 MG TABLET PO SCH (20:23)
[2022-06-20] MEDS: Gabapentin 100 MG CAPSULE PO SCH (20:23)
[2022-06-20] MEDS: traZODone 50 MG TABLET PO SCH (20:24)
[2022-06-21] MEDS: Saliva Stimulant 44.3ml BOTTLE PO SCH ×3 (00:18→16:26)
[2022-06-21] MEDS: *HR* Enoxaparin 40 MG/0.4 ML SYRINGE SQ SCH (05:02)
[2022-06-21] MEDS: FLUoxetine HCl 10 MG CAPSULE PO SCH (09:10)
[2022-06-21] MEDS: Cholecalciferol (D-3) 1,000 UNIT (25MCG) TABLET PO SCH (09:11)
[2022-06-21] MEDS: QUEtiapine Fumarate 25 MG TABLET PO SCH ×2 (09:11→21:21)
[2022-06-21] MEDS: *HR* LORazepam 1 MG TABLET PO PRN (17:37)
[2022-06-21] MEDS: Gabapentin 100 MG CAPSULE PO SCH (21:20)
[2022-06-21] MEDS: traZODone 50 MG TABLET PO SCH (21:21)
[2022-06-21] MEDS: Melatonin 3 MG TABLET PO SCH (21:21)
[2022-06-22] MEDS: Saliva Stimulant 44.3ml BOTTLE PO SCH ×3 (02:11→15:52)
[2022-06-22] MEDS: *HR* Enoxaparin 40 MG/0.4 ML SYRINGE SQ SCH (05:39)
[2022-06-22] MEDS: Cholecalciferol (D-3) 1,000 UNIT (25MCG) TABLET PO SCH (09:00)
[2022-06-22] MEDS: QUEtiapine Fumarate 25 MG TABLET PO SCH ×2 (09:00→21:18)
[2022-06-22] MEDS: FLUoxetine HCl 10 MG CAPSULE PO SCH (09:00)
[2022-06-22 10:14] LABS: Hematocrit 37.4 % (35.3-44.9); Hemoglobin 12.6 g/dL (11.5-15.4); Mean Corpuscular HGB Conc 33.7 g/dL (31.6-35.5); Mean Platelet Volume 11.7 fL (9.4-12.4); Platelet Count 268 K/mcL (140-400); Red Cell Distribution Width 12.2 % (11.5-14.5); White Blood Count 5.8 K/mcL (4.3-11.1)
[2022-06-22 10:33] LABS: BUN/Creatinine Ratio 40 (6-26); Blood Urea Nitrogen 25 mg/dL (6-20); Calcium 9.3 mg/dL (8.6-10.3); Carbon Dioxide 32 mEq/L (23-29); Chloride 102 mEq/L (98-107); Glucose 93 mg/dL (70-105); Osmolality,Calculated 290 (280-300); Potassium 3.9 mEq/L (3.5-5.1); Sodium 138 mEq/L (136-145)
[2022-06-22] MEDS: *HR* LORazepam 1 MG TABLET PO PRN (17:22)
[2022-06-22] MEDS: traZODone 50 MG TABLET PO SCH (21:18)
[2022-06-22] MEDS: Melatonin 3 MG TABLET PO SCH (21:18)
[2022-06-22] MEDS: Gabapentin 100 MG CAPSULE PO SCH (21:18)
[2022-06-22] MEDS: Melatonin 3 MG TABLET GTUBE SCH (22:18)
[2022-06-22] MEDS: QUEtiapine Fumarate 25 MG TABLET GTUBE SCH (22:19)
[2022-06-22] MEDS: Gabapentin 100 MG CAPSULE GTUBE SCH (22:20)
[2022-06-22] MEDS: traZODone 50 MG TABLET GTUBE SCH (22:29)
[2022-06-23] MEDS: Saliva Stimulant 44.3ml BOTTLE PO SCH ×3 (00:59→17:30)
[2022-06-23] MEDS: *HR* Enoxaparin 40 MG/0.4 ML SYRINGE SQ SCH (04:49)
[2022-06-23] MEDS: QUEtiapine Fumarate 25 MG TABLET GTUBE SCH ×2 (09:10→21:03)
[2022-06-23] MEDS: Cholecalciferol (D-3) 1,000 UNIT (25MCG) TABLET GTUBE SCH (09:10)
[2022-06-23] MEDS: FLUoxetine HCl Oral Soln 20 MG/5 ML UDC GTUBE SCH (09:11)
[2022-06-23] MEDS: *HR* LORazepam 1 MG TABLET GTUBE PRN (17:49)
[2022-06-23] MEDS: Melatonin 3 MG TABLET GTUBE SCH (21:02)
[2022-06-23] MEDS: traZODone 50 MG TABLET GTUBE SCH (21:02)
[2022-06-23] MEDS: Gabapentin 100 MG CAPSULE GTUBE SCH (21:02)
[2022-06-24] MEDS: Saliva Stimulant 44.3ml BOTTLE PO SCH ×4 (00:26→23:39)
[2022-06-24] MEDS: *HR* Enoxaparin 40 MG/0.4 ML SYRINGE SQ SCH (04:55)
[2022-06-24] MEDS: Cholecalciferol (D-3) 1,000 UNIT (25MCG) TABLET GTUBE SCH (08:31)
[2022-06-24] MEDS: QUEtiapine Fumarate 25 MG TABLET GTUBE SCH ×2 (08:31→21:22)
[2022-06-24] MEDS: FLUoxetine HCl Oral Soln 20 MG/5 ML UDC GTUBE SCH (08:31)
[2022-06-24] MEDS: Melatonin 3 MG TABLET GTUBE SCH (21:22)
[2022-06-24] MEDS: Gabapentin 100 MG CAPSULE GTUBE SCH (21:22)
[2022-06-24] MEDS: traZODone 50 MG TABLET GTUBE SCH (21:22)
[2022-06-25] MEDS: *HR* Enoxaparin 40 MG/0.4 ML SYRINGE SQ SCH (05:01)
[2022-06-25] MEDS: Cholecalciferol (D-3) 1,000 UNIT (25MCG) TABLET GTUBE SCH (08:19)
[2022-06-25] MEDS: QUEtiapine Fumarate 25 MG TABLET GTUBE SCH ×2 (08:19→21:26)
[2022-06-25] MEDS: FLUoxetine HCl Oral Soln 20 MG/5 ML UDC GTUBE SCH (08:19)
[2022-06-25] MEDS: Saliva Stimulant 44.3ml BOTTLE PO SCH ×3 (08:20→23:51)
[2022-06-25] MEDS: Gabapentin 100 MG CAPSULE GTUBE SCH (21:25)
[2022-06-25] MEDS: Melatonin 3 MG TABLET GTUBE SCH (21:25)
[2022-06-25] MEDS: traZODone 50 MG TABLET GTUBE SCH (21:26)
[2022-06-26] MEDS: *HR* Enoxaparin 40 MG/0.4 ML SYRINGE SQ SCH (06:05)
[2022-06-26] MEDS: QUEtiapine Fumarate 25 MG TABLET GTUBE SCH ×2 (10:13→23:14)
[2022-06-26] MEDS: Cholecalciferol (D-3) 1,000 UNIT (25MCG) TABLET GTUBE SCH (10:13)
[2022-06-26] MEDS: FLUoxetine HCl Oral Soln 20 MG/5 ML UDC GTUBE SCH (10:13)
[2022-06-26] MEDS: Saliva Stimulant 44.3ml BOTTLE PO SCH ×3 (10:13→23:17)
[2022-06-26] MEDS: Melatonin 3 MG TABLET GTUBE SCH (23:14)
[2022-06-26] MEDS: Gabapentin 100 MG CAPSULE GTUBE SCH (23:14)
[2022-06-26] MEDS: traZODone 50 MG TABLET GTUBE SCH (23:14)
[2022-06-27] MEDS: *HR* Enoxaparin 40 MG/0.4 ML SYRINGE SQ SCH (06:39)
[2022-06-27] MEDS: Saliva Stimulant 44.3ml BOTTLE PO SCH ×2 (09:31→15:06)
[2022-06-27] MEDS: FLUoxetine HCl Oral Soln 20 MG/5 ML UDC GTUBE SCH (09:31)
[2022-06-27] MEDS: QUEtiapine Fumarate 25 MG TABLET GTUBE SCH ×2 (09:33→21:15)
[2022-06-27] MEDS: Cholecalciferol (D-3) 1,000 UNIT (25MCG) TABLET GTUBE SCH (09:33)
[2022-06-27] MEDS: Melatonin 3 MG TABLET GTUBE SCH (21:14)
[2022-06-27] MEDS: Gabapentin 100 MG CAPSULE GTUBE SCH (21:15)
[2022-06-27] MEDS: traZODone 50 MG TABLET GTUBE SCH (21:15)
[2022-06-28] MEDS: Saliva Stimulant 44.3ml BOTTLE PO SCH ×3 (00:13→14:44)
[2022-06-28] MEDS: *HR* Enoxaparin 40 MG/0.4 ML SYRINGE SQ SCH (06:00)
[2022-06-28] MEDS: FLUoxetine HCl Oral Soln 20 MG/5 ML UDC GTUBE SCH (10:08)
[2022-06-28] MEDS: Cholecalciferol (D-3) 1,000 UNIT (25MCG) TABLET GTUBE SCH (10:08)
[2022-06-28] MEDS: QUEtiapine Fumarate 25 MG TABLET GTUBE SCH ×2 (10:08→21:28)
[2022-06-28] MEDS: *HR* LORazepam 1 MG TABLET GTUBE PRN (14:42)
[2022-06-28] MEDS: Melatonin 3 MG TABLET GTUBE SCH (21:25)
[2022-06-28] MEDS: Gabapentin 100 MG CAPSULE GTUBE SCH (21:26)
[2022-06-28] MEDS: traZODone 50 MG TABLET GTUBE SCH (21:26)
[2022-06-29] MEDS: *HR* Enoxaparin 40 MG/0.4 ML SYRINGE SQ SCH (05:12)
[2022-06-29] MEDS: Cholecalciferol (D-3) 1,000 UNIT (25MCG) TABLET GTUBE SCH (08:57)
[2022-06-29] MEDS: FLUoxetine HCl Oral Soln 20 MG/5 ML UDC GTUBE SCH (08:57)
[2022-06-29] MEDS: QUEtiapine Fumarate 25 MG TABLET GTUBE SCH ×2 (08:58→19:52)
[2022-06-29] MEDS: Saliva Stimulant 44.3ml BOTTLE PO SCH ×4 (08:59→23:12)
[2022-06-29] MEDS: Melatonin 3 MG TABLET GTUBE SCH (19:52)
[2022-06-29] MEDS: Gabapentin 100 MG CAPSULE GTUBE SCH (19:52)
[2022-06-29] MEDS: traZODone 50 MG TABLET GTUBE SCH (19:52)
[2022-06-30] MEDS: *HR* Enoxaparin 40 MG/0.4 ML SYRINGE SQ SCH (05:15)
[2022-06-30] MEDS: Cholecalciferol (D-3) 1,000 UNIT (25MCG) TABLET GTUBE SCH (08:17)
[2022-06-30] MEDS: FLUoxetine HCl Oral Soln 20 MG/5 ML UDC GTUBE SCH (08:18)
[2022-06-30] MEDS: Saliva Stimulant 44.3ml BOTTLE PO SCH ×3 (08:18→23:31)
[2022-06-30] MEDS: QUEtiapine Fumarate 25 MG TABLET GTUBE SCH ×2 (08:18→20:05)
[2022-06-30] MEDS: Gabapentin 100 MG CAPSULE GTUBE SCH (19:59)
[2022-06-30] MEDS: traZODone 50 MG TABLET GTUBE SCH (20:05)
[2022-06-30] MEDS: Melatonin 3 MG TABLET GTUBE SCH (20:05)
[2022-07-01] MEDS: *HR* Enoxaparin 40 MG/0.4 ML SYRINGE SQ SCH (05:15)
[2022-07-01] MEDS: FLUoxetine HCl Oral Soln 20 MG/5 ML UDC GTUBE SCH (08:28)
[2022-07-01] MEDS: QUEtiapine Fumarate 25 MG TABLET GTUBE SCH ×2 (08:28→20:30)
[2022-07-01] MEDS: Saliva Stimulant 44.3ml BOTTLE PO SCH ×3 (08:28→23:56)
[2022-07-01] MEDS: Cholecalciferol (D-3) 1,000 UNIT (25MCG) TABLET GTUBE SCH (08:28)
[2022-07-01] MEDS: Gabapentin 100 MG CAPSULE GTUBE SCH (20:30)
[2022-07-01] MEDS: traZODone 50 MG TABLET GTUBE SCH (20:30)
[2022-07-01] MEDS: Melatonin 3 MG TABLET GTUBE SCH (20:30)
[2022-07-02] MEDS: *HR* Enoxaparin 40 MG/0.4 ML SYRINGE SQ SCH (05:41)
[2022-07-02] MEDS: Saliva Stimulant 44.3ml BOTTLE PO SCH ×2 (09:23→15:36)
[2022-07-02] MEDS: QUEtiapine Fumarate 25 MG TABLET GTUBE SCH ×2 (09:23→19:43)
[2022-07-02] MEDS: Cholecalciferol (D-3) 1,000 UNIT (25MCG) TABLET GTUBE SCH (09:23)
[2022-07-02] MEDS: FLUoxetine HCl Oral Soln 20 MG/5 ML UDC GTUBE SCH (09:23)
[2022-07-02] MEDS: Gabapentin 100 MG CAPSULE GTUBE SCH (19:40)
[2022-07-02] MEDS: Melatonin 3 MG TABLET GTUBE SCH (19:42)
[2022-07-02] MEDS: traZODone 50 MG TABLET GTUBE SCH (19:43)
[2022-07-03] MEDS: Saliva Stimulant 44.3ml BOTTLE PO SCH ×3 (00:41→15:16)
[2022-07-03] MEDS: *HR* Enoxaparin 40 MG/0.4 ML SYRINGE SQ SCH (05:34)
[2022-07-03] MEDS: Cholecalciferol (D-3) 1,000 UNIT (25MCG) TABLET GTUBE SCH (09:47)
[2022-07-03] MEDS: QUEtiapine Fumarate 25 MG TABLET GTUBE SCH ×2 (09:47→22:04)
[2022-07-03] MEDS: FLUoxetine HCl Oral Soln 20 MG/5 ML UDC GTUBE SCH (09:48)
[2022-07-03] MEDS: Gabapentin 100 MG CAPSULE GTUBE SCH (22:01)
[2022-07-03] MEDS: Melatonin 3 MG TABLET GTUBE SCH (22:04)
[2022-07-03] MEDS: traZODone 50 MG TABLET GTUBE SCH (22:04)
[2022-07-04] MEDS: Saliva Stimulant 44.3ml BOTTLE PO SCH ×4 (00:05→23:39)
[2022-07-04] MEDS: *HR* Enoxaparin 40 MG/0.4 ML SYRINGE SQ SCH (05:41)
[2022-07-04] MEDS: FLUoxetine HCl Oral Soln 20 MG/5 ML UDC GTUBE SCH (09:25)
[2022-07-04] MEDS: QUEtiapine Fumarate 25 MG TABLET GTUBE SCH ×2 (09:25→21:47)
[2022-07-04] MEDS: Cholecalciferol (D-3) 1,000 UNIT (25MCG) TABLET GTUBE SCH (09:25)
[2022-07-04] MEDS: Melatonin 3 MG TABLET GTUBE SCH (21:47)
[2022-07-04] MEDS: traZODone 50 MG TABLET GTUBE SCH (21:47)
[2022-07-04] MEDS: Gabapentin 100 MG CAPSULE GTUBE SCH (21:47)
[2022-07-05] MEDS: Saliva Stimulant 44.3ml BOTTLE PO SCH ×4 (06:33→23:48)
[2022-07-05] MEDS: *HR* Enoxaparin 40 MG/0.4 ML SYRINGE SQ SCH (06:33)
[2022-07-05] MEDS: Cholecalciferol (D-3) 1,000 UNIT (25MCG) TABLET GTUBE SCH (09:45)
[2022-07-05] MEDS: QUEtiapine Fumarate 25 MG TABLET GTUBE SCH ×2 (09:46→23:47)
[2022-07-05] MEDS: FLUoxetine HCl Oral Soln 20 MG/5 ML UDC GTUBE SCH (09:47)
[2022-07-05] MEDS: Melatonin 3 MG TABLET GTUBE SCH (23:47)
[2022-07-05] MEDS: traZODone 50 MG TABLET GTUBE SCH (23:48)
[2022-07-05] MEDS: Gabapentin 100 MG CAPSULE GTUBE SCH (23:48)
[2022-07-06 01:55] LABS: Hematocrit 36.4 % (35.3-44.9); Hemoglobin 12.5 g/dL (11.5-15.4); Mean Corpuscular HGB Conc 34.3 g/dL (31.6-35.5); Mean Corpuscular Volume 87.3 fL (83.0-100.0); Mean Platelet Volume 11.7 fL (9.4-12.4); Platelet Count 247 K/mcL (140-400); Red Blood Count 4.17 M/mcL (3.82-4.97); White Blood Count 7.1 K/mcL (4.3-11.1)
[2022-07-06 02:16] LABS: BUN/Creatinine Ratio 39 (6-26); Blood Urea Nitrogen 19 mg/dL (6-20); Calcium 9.4 mg/dL (8.6-10.3); Carbon Dioxide 30 mEq/L (23-29); Chloride 102 mEq/L (98-107); Glucose 126 mg/dL (70-105); Osmolality,Calculated 292 (280-300); Potassium 3.7 mEq/L (3.5-5.1); Sodium 139 mEq/L (136-145)
[2022-07-06] MEDS: *HR* Enoxaparin 40 MG/0.4 ML SYRINGE SQ SCH (04:40)
[2022-07-06] MEDS: FLUoxetine HCl Oral Soln 20 MG/5 ML UDC GTUBE SCH (09:14)
[2022-07-06] MEDS: Saliva Stimulant 44.3ml BOTTLE PO SCH ×3 (09:14→23:45)
[2022-07-06] MEDS: QUEtiapine Fumarate 25 MG TABLET GTUBE SCH ×2 (09:14→23:45)
[2022-07-06] MEDS: Cholecalciferol (D-3) 1,000 UNIT (25MCG) TABLET GTUBE SCH (09:14)
[2022-07-06] MEDS: Melatonin 3 MG TABLET GTUBE SCH (23:44)
[2022-07-06] MEDS: Gabapentin 100 MG CAPSULE GTUBE SCH (23:44)
[2022-07-06] MEDS: traZODone 50 MG TABLET GTUBE SCH (23:45)
[2022-07-07] MEDS: *HR* Enoxaparin 40 MG/0.4 ML SYRINGE SQ SCH (06:23)
[2022-07-07] MEDS: Saliva Stimulant 44.3ml BOTTLE PO SCH ×2 (08:16→16:57)
[2022-07-07] MEDS: QUEtiapine Fumarate 25 MG TABLET GTUBE SCH ×2 (08:16→22:02)
[2022-07-07] MEDS: FLUoxetine HCl Oral Soln 20 MG/5 ML UDC GTUBE SCH (08:16)
[2022-07-07] MEDS: Cholecalciferol (D-3) 1,000 UNIT (25MCG) TABLET GTUBE SCH (08:16)
[2022-07-07] MEDS: Gabapentin 100 MG CAPSULE GTUBE SCH (22:00)
[2022-07-07] MEDS: Melatonin 3 MG TABLET GTUBE SCH (22:01)
[2022-07-07] MEDS: traZODone 50 MG TABLET GTUBE SCH (22:02)
[2022-07-08] MEDS: Saliva Stimulant 44.3ml BOTTLE PO SCH ×4 (00:57→23:43)
[2022-07-08] MEDS: *HR* Enoxaparin 40 MG/0.4 ML SYRINGE SQ SCH (05:55)
[2022-07-08] MEDS: FLUoxetine HCl Oral Soln 20 MG/5 ML UDC GTUBE SCH (08:16)
[2022-07-08] MEDS: QUEtiapine Fumarate 25 MG TABLET GTUBE SCH ×2 (08:17→20:28)
[2022-07-08] MEDS: Cholecalciferol (D-3) 1,000 UNIT (25MCG) TABLET GTUBE SCH (08:17)
[2022-07-08] MEDS: Melatonin 3 MG TABLET GTUBE SCH (20:27)
[2022-07-08] MEDS: traZODone 50 MG TABLET GTUBE SCH (20:28)
[2022-07-08] MEDS: Gabapentin 100 MG CAPSULE GTUBE SCH (20:28)
[2022-07-09] MEDS: *HR* Enoxaparin 40 MG/0.4 ML SYRINGE SQ SCH (05:13)
[2022-07-09] MEDS: Cholecalciferol (D-3) 1,000 UNIT (25MCG) TABLET GTUBE SCH (08:08)
[2022-07-09] MEDS: QUEtiapine Fumarate 25 MG TABLET GTUBE SCH ×2 (08:08→21:21)
[2022-07-09] MEDS: Saliva Stimulant 44.3ml BOTTLE PO SCH ×2 (08:08→15:49)
[2022-07-09] MEDS: FLUoxetine HCl Oral Soln 20 MG/5 ML UDC GTUBE SCH (08:08)
[2022-07-09] MEDS: Melatonin 3 MG TABLET GTUBE SCH (21:20)
[2022-07-09] MEDS: Gabapentin 100 MG CAPSULE GTUBE SCH (21:20)
[2022-07-09] MEDS: traZODone 50 MG TABLET GTUBE SCH (21:21)
[2022-07-10] MEDS: Saliva Stimulant 44.3ml BOTTLE PO SCH ×3 (00:42→17:40)
[2022-07-10] MEDS: *HR* Enoxaparin 40 MG/0.4 ML SYRINGE SQ SCH (06:36)
[2022-07-10] MEDS: FLUoxetine HCl Oral Soln 20 MG/5 ML UDC GTUBE SCH (09:56)
[2022-07-10] MEDS: QUEtiapine Fumarate 25 MG TABLET GTUBE SCH ×2 (09:57→21:47)
[2022-07-10] MEDS: Cholecalciferol (D-3) 1,000 UNIT (25MCG) TABLET GTUBE SCH (09:57)
[2022-07-10] MEDS: traZODone 50 MG TABLET GTUBE SCH (21:46)
[2022-07-10] MEDS: Melatonin 3 MG TABLET GTUBE SCH (21:46)
[2022-07-10] MEDS: Gabapentin 100 MG CAPSULE GTUBE SCH (21:47)
[2022-07-11] MEDS: Saliva Stimulant 44.3ml BOTTLE PO SCH ×4 (00:16→23:22)
[2022-07-11] MEDS: *HR* Enoxaparin 40 MG/0.4 ML SYRINGE SQ SCH (06:08)
[2022-07-11] MEDS: FLUoxetine HCl Oral Soln 20 MG/5 ML UDC GTUBE SCH (08:10)
[2022-07-11] MEDS: QUEtiapine Fumarate 25 MG TABLET GTUBE SCH ×2 (08:10→20:53)
[2022-07-11] MEDS: Cholecalciferol (D-3) 1,000 UNIT (25MCG) TABLET GTUBE SCH (08:10)
[2022-07-11] MEDS: traZODone 50 MG TABLET GTUBE SCH (20:53)
[2022-07-11] MEDS: Melatonin 3 MG TABLET GTUBE SCH (20:53)
[2022-07-11] MEDS: Gabapentin 100 MG CAPSULE GTUBE SCH (20:53)
[2022-07-12] MEDS: *HR* Enoxaparin 40 MG/0.4 ML SYRINGE SQ SCH (05:04)
[2022-07-12] MEDS: FLUoxetine HCl Oral Soln 20 MG/5 ML UDC GTUBE SCH (08:06)
[2022-07-12] MEDS: Saliva Stimulant 44.3ml BOTTLE PO SCH ×2 (08:07→17:14)
[2022-07-12] MEDS: QUEtiapine Fumarate 25 MG TABLET GTUBE SCH ×2 (08:07→20:49)
[2022-07-12] MEDS: Cholecalciferol (D-3) 1,000 UNIT (25MCG) TABLET GTUBE SCH (08:07)
[2022-07-12] MEDS: Gabapentin 100 MG CAPSULE GTUBE SCH (20:50)
[2022-07-12] MEDS: traZODone 50 MG TABLET GTUBE SCH (20:50)
[2022-07-12] MEDS: Melatonin 3 MG TABLET GTUBE SCH (20:50)
[2022-07-13] MEDS: Saliva Stimulant 44.3ml BOTTLE PO SCH ×3 (02:03→17:24)
[2022-07-13] MEDS: *HR* Enoxaparin 40 MG/0.4 ML SYRINGE SQ SCH (06:03)
[2022-07-13] MEDS: Cholecalciferol (D-3) 1,000 UNIT (25MCG) TABLET GTUBE SCH (09:11)
[2022-07-13] MEDS: FLUoxetine HCl Oral Soln 20 MG/5 ML UDC GTUBE SCH (09:11)
[2022-07-13] MEDS: QUEtiapine Fumarate 25 MG TABLET GTUBE SCH ×2 (09:11→19:45)
[2022-07-13] MEDS: Gabapentin 100 MG CAPSULE GTUBE SCH (19:44)
[2022-07-13] MEDS: traZODone 50 MG TABLET GTUBE SCH (19:46)
[2022-07-13] MEDS: Melatonin 3 MG TABLET GTUBE SCH (19:47)
[2022-07-14] MEDS: Saliva Stimulant 44.3ml BOTTLE PO SCH ×3 (05:29→18:23)
[2022-07-14] MEDS: *HR* Enoxaparin 40 MG/0.4 ML SYRINGE SQ SCH (05:32)
[2022-07-14] MEDS: FLUoxetine HCl Oral Soln 20 MG/5 ML UDC GTUBE SCH (08:18)
[2022-07-14] MEDS: Cholecalciferol (D-3) 1,000 UNIT (25MCG) TABLET GTUBE SCH (08:19)
[2022-07-14] MEDS: QUEtiapine Fumarate 25 MG TABLET GTUBE SCH ×2 (08:19→22:22)
[2022-07-14] MEDS: Melatonin 3 MG TABLET GTUBE SCH (22:21)
[2022-07-14] MEDS: Gabapentin 100 MG CAPSULE GTUBE SCH (22:21)
[2022-07-14] MEDS: traZODone 50 MG TABLET GTUBE SCH (22:22)
[2022-07-15] MEDS: Saliva Stimulant 44.3ml BOTTLE PO SCH ×3 (00:44→16:53)
[2022-07-15] MEDS: *HR* Enoxaparin 40 MG/0.4 ML SYRINGE SQ SCH (06:12)
[2022-07-15] MEDS: QUEtiapine Fumarate 25 MG TABLET GTUBE SCH ×2 (09:11→21:01)
[2022-07-15] MEDS: Cholecalciferol (D-3) 1,000 UNIT (25MCG) TABLET GTUBE SCH (09:11)
[2022-07-15] MEDS: FLUoxetine HCl Oral Soln 20 MG/5 ML UDC GTUBE SCH (09:11)
[2022-07-15] MEDS: traZODone 50 MG TABLET GTUBE SCH (21:01)
[2022-07-15] MEDS: Gabapentin 100 MG CAPSULE GTUBE SCH (21:01)
[2022-07-15] MEDS: Melatonin 3 MG TABLET GTUBE SCH (21:01)
[2022-07-16] MEDS: *HR* Enoxaparin 40 MG/0.4 ML SYRINGE SQ SCH (05:32)
[2022-07-16] MEDS: Saliva Stimulant 44.3ml BOTTLE PO SCH ×3 (07:30→16:21)
[2022-07-16] MEDS: Cholecalciferol (D-3) 1,000 UNIT (25MCG) TABLET GTUBE SCH (07:30)
[2022-07-16] MEDS: FLUoxetine HCl Oral Soln 20 MG/5 ML UDC GTUBE SCH (07:30)
[2022-07-16] MEDS: QUEtiapine Fumarate 25 MG TABLET GTUBE SCH ×2 (07:30→20:22)
[2022-07-16] MEDS: traZODone 50 MG TABLET GTUBE SCH (20:22)
[2022-07-16] MEDS: Gabapentin 100 MG CAPSULE GTUBE SCH (20:22)
[2022-07-16] MEDS: Melatonin 3 MG TABLET GTUBE SCH (20:22)
[2022-07-17] MEDS: Saliva Stimulant 44.3ml BOTTLE PO SCH ×4 (00:02→23:31)
[2022-07-17] MEDS: *HR* Enoxaparin 40 MG/0.4 ML SYRINGE SQ SCH (06:08)
[2022-07-17] MEDS: FLUoxetine HCl Oral Soln 20 MG/5 ML UDC GTUBE SCH (07:23)
[2022-07-17] MEDS: Cholecalciferol (D-3) 1,000 UNIT (25MCG) TABLET GTUBE SCH (07:23)
[2022-07-17] MEDS: QUEtiapine Fumarate 25 MG TABLET GTUBE SCH ×2 (07:23→23:32)
[2022-07-17] MEDS: *HR* LORazepam 1 MG TABLET GTUBE PRN (16:28)
[2022-07-17] MEDS: Gabapentin 100 MG CAPSULE GTUBE SCH (23:32)
[2022-07-17] MEDS: traZODone 50 MG TABLET GTUBE SCH (23:32)
[2022-07-17] MEDS: Melatonin 3 MG TABLET GTUBE SCH (23:32)
[2022-07-18] MEDS: *HR* Enoxaparin 40 MG/0.4 ML SYRINGE SQ SCH (06:16)
[2022-07-18] MEDS: QUEtiapine Fumarate 25 MG TABLET GTUBE SCH ×2 (07:52→21:52)
[2022-07-18] MEDS: FLUoxetine HCl Oral Soln 20 MG/5 ML UDC GTUBE SCH (07:52)
[2022-07-18] MEDS: Saliva Stimulant 44.3ml BOTTLE PO SCH ×2 (07:53→15:59)
[2022-07-18] MEDS: Cholecalciferol (D-3) 1,000 UNIT (25MCG) TABLET GTUBE SCH (07:53)
[2022-07-18] MEDS: traZODone 50 MG TABLET GTUBE SCH (21:52)
[2022-07-18] MEDS: Gabapentin 100 MG CAPSULE GTUBE SCH (21:52)
[2022-07-18] MEDS: Melatonin 3 MG TABLET GTUBE SCH (21:52)
[2022-07-19] MEDS: Saliva Stimulant 44.3ml BOTTLE PO SCH ×3 (00:25→17:09)
[2022-07-19] MEDS: *HR* Enoxaparin 40 MG/0.4 ML SYRINGE SQ SCH (05:12)
[2022-07-19] MEDS: Cholecalciferol (D-3) 1,000 UNIT (25MCG) TABLET GTUBE SCH (08:15)
[2022-07-19] MEDS: FLUoxetine HCl Oral Soln 20 MG/5 ML UDC GTUBE SCH (08:15)
[2022-07-19] MEDS: QUEtiapine Fumarate 25 MG TABLET GTUBE SCH ×2 (08:15→20:41)
[2022-07-19] MEDS: Gabapentin 100 MG CAPSULE GTUBE SCH (20:41)
[2022-07-19] MEDS: Melatonin 3 MG TABLET GTUBE SCH (20:41)
[2022-07-19] MEDS: traZODone 50 MG TABLET GTUBE SCH (20:41)
[2022-07-20] MEDS: Saliva Stimulant 44.3ml BOTTLE PO SCH ×4 (00:05→23:01)
[2022-07-20] MEDS: *HR* Enoxaparin 40 MG/0.4 ML SYRINGE SQ SCH (05:55)
[2022-07-20] MEDS: FLUoxetine HCl Oral Soln 20 MG/5 ML UDC GTUBE SCH (09:10)
[2022-07-20] MEDS: QUEtiapine Fumarate 25 MG TABLET GTUBE SCH ×2 (09:10→22:59)
[2022-07-20] MEDS: Cholecalciferol (D-3) 1,000 UNIT (25MCG) TABLET GTUBE SCH (09:10)
[2022-07-20] MEDS: Melatonin 3 MG TABLET GTUBE SCH (22:57)
[2022-07-20] MEDS: Gabapentin 100 MG CAPSULE GTUBE SCH (22:58)
[2022-07-20] MEDS: traZODone 50 MG TABLET GTUBE SCH (22:59)
[2022-07-21] MEDS: *HR* Enoxaparin 40 MG/0.4 ML SYRINGE SQ SCH (05:15)
[2022-07-21] MEDS: FLUoxetine HCl Oral Soln 20 MG/5 ML UDC GTUBE SCH (09:06)
[2022-07-21] MEDS: Saliva Stimulant 44.3ml BOTTLE PO SCH ×2 (09:06→18:04)
[2022-07-21] MEDS: QUEtiapine Fumarate 25 MG TABLET GTUBE SCH ×2 (09:07→20:12)
[2022-07-21] MEDS: Cholecalciferol (D-3) 1,000 UNIT (25MCG) TABLET GTUBE SCH (09:07)
[2022-07-21] MEDS: Melatonin 3 MG TABLET GTUBE SCH (20:12)
[2022-07-21] MEDS: Gabapentin 100 MG CAPSULE GTUBE SCH (20:12)
[2022-07-21] MEDS: traZODone 50 MG TABLET GTUBE SCH (20:12)
[2022-07-22] MEDS: Saliva Stimulant 44.3ml BOTTLE PO SCH ×3 (00:30→15:24)
[2022-07-22] MEDS: *HR* Enoxaparin 40 MG/0.4 ML SYRINGE SQ SCH (04:52)
[2022-07-22] MEDS: FLUoxetine HCl Oral Soln 20 MG/5 ML UDC GTUBE SCH (07:20)
[2022-07-22] MEDS: QUEtiapine Fumarate 25 MG TABLET GTUBE SCH ×2 (07:21→20:56)
[2022-07-22] MEDS: Cholecalciferol (D-3) 1,000 UNIT (25MCG) TABLET GTUBE SCH (07:21)
[2022-07-22] MEDS: Gabapentin 100 MG CAPSULE GTUBE SCH (20:56)
[2022-07-22] MEDS: traZODone 50 MG TABLET GTUBE SCH (20:56)
[2022-07-22] MEDS: Melatonin 3 MG TABLET GTUBE SCH (20:57)
[2022-07-23] MEDS: Saliva Stimulant 44.3ml BOTTLE PO SCH ×3 (00:02→17:05)
[2022-07-23] MEDS: *HR* Enoxaparin 40 MG/0.4 ML SYRINGE SQ SCH (04:50)
[2022-07-23] MEDS: FLUoxetine HCl Oral Soln 20 MG/5 ML UDC GTUBE SCH (09:58)
[2022-07-23] MEDS: QUEtiapine Fumarate 25 MG TABLET GTUBE SCH ×2 (09:58→19:47)
[2022-07-23] MEDS: Cholecalciferol (D-3) 1,000 UNIT (25MCG) TABLET GTUBE SCH (10:00)
[2022-07-23] MEDS: Gabapentin 100 MG CAPSULE GTUBE SCH (19:45)
[2022-07-23] MEDS: traZODone 50 MG TABLET GTUBE SCH (19:47)
[2022-07-23] MEDS: Melatonin 3 MG TABLET GTUBE SCH (19:47)
[2022-07-24] MEDS: *HR* Enoxaparin 40 MG/0.4 ML SYRINGE SQ SCH (05:45)
[2022-07-24] MEDS: Saliva Stimulant 44.3ml BOTTLE PO SCH ×4 (06:44→23:16)
[2022-07-24] MEDS: QUEtiapine Fumarate 25 MG TABLET GTUBE SCH ×2 (09:32→20:25)
[2022-07-24] MEDS: Cholecalciferol (D-3) 1,000 UNIT (25MCG) TABLET GTUBE SCH (09:33)
[2022-07-24] MEDS: FLUoxetine HCl Oral Soln 20 MG/5 ML UDC GTUBE SCH (09:34)
[2022-07-24] MEDS: Melatonin 3 MG TABLET GTUBE SCH (20:24)
[2022-07-24] MEDS: traZODone 50 MG TABLET GTUBE SCH (20:25)
[2022-07-24] MEDS: Gabapentin 100 MG CAPSULE GTUBE SCH (20:25)
[2022-07-25] MEDS: *HR* Enoxaparin 40 MG/0.4 ML SYRINGE SQ SCH (06:07)
[2022-07-25] MEDS: FLUoxetine HCl Oral Soln 20 MG/5 ML UDC GTUBE SCH (08:10)
[2022-07-25] MEDS: QUEtiapine Fumarate 25 MG TABLET GTUBE SCH ×2 (08:11→19:51)
[2022-07-25] MEDS: Cholecalciferol (D-3) 1,000 UNIT (25MCG) TABLET GTUBE SCH (08:11)
[2022-07-25] MEDS: Saliva Stimulant 44.3ml BOTTLE PO SCH ×2 (08:30→16:12)
[2022-07-25] MEDS: traZODone 50 MG TABLET GTUBE SCH (19:50)
[2022-07-25] MEDS: Melatonin 3 MG TABLET GTUBE SCH (19:50)
[2022-07-25] MEDS: Gabapentin 100 MG CAPSULE GTUBE SCH (19:50)
[2022-07-26] MEDS: Saliva Stimulant 44.3ml BOTTLE PO SCH ×4 (00:13→23:30)
[2022-07-26] MEDS: *HR* Enoxaparin 40 MG/0.4 ML SYRINGE SQ SCH (05:35)
[2022-07-26] MEDS: QUEtiapine Fumarate 25 MG TABLET GTUBE SCH ×2 (08:54→21:04)
[2022-07-26] MEDS: Cholecalciferol (D-3) 1,000 UNIT (25MCG) TABLET GTUBE SCH (08:54)
[2022-07-26] MEDS: FLUoxetine HCl Oral Soln 20 MG/5 ML UDC GTUBE SCH (08:56)
[2022-07-26] MEDS: Gabapentin 100 MG CAPSULE GTUBE SCH (21:03)
[2022-07-26] MEDS: Melatonin 3 MG TABLET GTUBE SCH (21:04)
[2022-07-26] MEDS: traZODone 50 MG TABLET GTUBE SCH (21:04)
[2022-07-27] MEDS: *HR* Enoxaparin 40 MG/0.4 ML SYRINGE SQ SCH (06:25)
[2022-07-27] MEDS: QUEtiapine Fumarate 25 MG TABLET GTUBE SCH ×2 (10:24→23:09)
[2022-07-27] MEDS: FLUoxetine HCl Oral Soln 20 MG/5 ML UDC GTUBE SCH (10:24)
[2022-07-27] MEDS: Cholecalciferol (D-3) 1,000 UNIT (25MCG) TABLET GTUBE SCH (10:24)
[2022-07-27] MEDS: Saliva Stimulant 44.3ml BOTTLE PO SCH ×3 (12:05→23:51)
[2022-07-27] MEDS: Gabapentin 100 MG CAPSULE GTUBE SCH (23:10)
[2022-07-27] MEDS: Melatonin 3 MG TABLET GTUBE SCH (23:10)
[2022-07-27] MEDS: traZODone 50 MG TABLET GTUBE SCH (23:10)
[2022-07-28] MEDS: *HR* Enoxaparin 40 MG/0.4 ML SYRINGE SQ SCH (05:46)
[2022-07-28] MEDS: FLUoxetine HCl Oral Soln 20 MG/5 ML UDC GTUBE SCH (08:26)
[2022-07-28] MEDS: Cholecalciferol (D-3) 1,000 UNIT (25MCG) TABLET GTUBE SCH (08:26)
[2022-07-28] MEDS: QUEtiapine Fumarate 25 MG TABLET GTUBE SCH ×2 (08:26→20:18)
[2022-07-28] MEDS: Saliva Stimulant 44.3ml BOTTLE PO SCH ×2 (08:27→18:13)
[2022-07-28] MEDS: Gabapentin 100 MG CAPSULE GTUBE SCH (20:16)
[2022-07-28] MEDS: Melatonin 3 MG TABLET GTUBE SCH (20:18)
[2022-07-28] MEDS: traZODone 50 MG TABLET GTUBE SCH (20:19)
[2022-07-29] MEDS: Saliva Stimulant 44.3ml BOTTLE PO SCH ×4 (00:28→23:59)
[2022-07-29] MEDS: *HR* Enoxaparin 40 MG/0.4 ML SYRINGE SQ SCH (05:58)
[2022-07-29] MEDS: Cholecalciferol (D-3) 1,000 UNIT (25MCG) TABLET GTUBE SCH (09:15)
[2022-07-29] MEDS: FLUoxetine HCl Oral Soln 20 MG/5 ML UDC GTUBE SCH (09:15)
[2022-07-29] MEDS: QUEtiapine Fumarate 25 MG TABLET GTUBE SCH ×2 (09:15→20:17)
[2022-07-29] MEDS: Gabapentin 100 MG CAPSULE GTUBE SCH (20:15)
[2022-07-29] MEDS: Melatonin 3 MG TABLET GTUBE SCH (20:17)
[2022-07-29] MEDS: traZODone 50 MG TABLET GTUBE SCH (20:18)
[2022-07-30] MEDS: *HR* Enoxaparin 40 MG/0.4 ML SYRINGE SQ SCH (05:38)
[2022-07-30] MEDS: FLUoxetine HCl Oral Soln 20 MG/5 ML UDC GTUBE SCH (07:12)
[2022-07-30] MEDS: QUEtiapine Fumarate 25 MG TABLET GTUBE SCH ×2 (07:12→21:54)
[2022-07-30] MEDS: Cholecalciferol (D-3) 1,000 UNIT (25MCG) TABLET GTUBE SCH (07:12)
[2022-07-30] MEDS: Saliva Stimulant 44.3ml BOTTLE PO SCH ×3 (07:12→23:47)
[2022-07-30] MEDS: Gabapentin 100 MG CAPSULE GTUBE SCH (21:54)
[2022-07-30] MEDS: traZODone 50 MG TABLET GTUBE SCH (21:54)
[2022-07-30] MEDS: Melatonin 3 MG TABLET GTUBE SCH (21:54)
[2022-07-31] MEDS: *HR* Enoxaparin 40 MG/0.4 ML SYRINGE SQ SCH (06:46)
[2022-07-31] MEDS: QUEtiapine Fumarate 25 MG TABLET GTUBE SCH ×2 (10:29→19:56)
[2022-07-31] MEDS: Cholecalciferol (D-3) 1,000 UNIT (25MCG) TABLET GTUBE SCH (10:29)
[2022-07-31] MEDS: FLUoxetine HCl Oral Soln 20 MG/5 ML UDC GTUBE SCH (10:29)
[2022-07-31] MEDS: Saliva Stimulant 44.3ml BOTTLE PO SCH ×3 (10:30→23:58)
[2022-07-31] MEDS: traZODone 50 MG TABLET GTUBE SCH (19:56)
[2022-07-31] MEDS: Melatonin 3 MG TABLET GTUBE SCH (19:56)
[2022-07-31] MEDS: Gabapentin 100 MG CAPSULE GTUBE SCH (20:07)
[2022-08-01] MEDS: *HR* Enoxaparin 40 MG/0.4 ML SYRINGE SQ SCH (05:08)
[2022-08-01] MEDS: Saliva Stimulant 44.3ml BOTTLE PO SCH ×2 (09:51→17:28)
[2022-08-01] MEDS: FLUoxetine HCl Oral Soln 20 MG/5 ML UDC GTUBE SCH (09:51)
[2022-08-01] MEDS: Cholecalciferol (D-3) 1,000 UNIT (25MCG) TABLET GTUBE SCH (09:51)
[2022-08-01] MEDS: QUEtiapine Fumarate 25 MG TABLET GTUBE SCH ×2 (09:51→21:11)
[2022-08-01 14:01] LABS: Influenza A PCR Negative (Negative); Influenza B PCR Negative (Negative); Resp. Syncytial Virus PCR Negative (Negative); SARS-CoV-2 by PCR (In House) Negative (Negative)
[2022-08-01] MEDS: Melatonin 3 MG TABLET GTUBE SCH (21:10)
[2022-08-01] MEDS: traZODone 50 MG TABLET GTUBE SCH (21:11)
[2022-08-01] MEDS: Gabapentin 100 MG CAPSULE GTUBE SCH (21:21)
[2022-08-02] MEDS: Saliva Stimulant 44.3ml BOTTLE PO SCH ×4 (00:10→23:09)
[2022-08-02] MEDS: *HR* Enoxaparin 40 MG/0.4 ML SYRINGE SQ SCH (05:41)
[2022-08-02] MEDS: Cholecalciferol (D-3) 1,000 UNIT (25MCG) TABLET GTUBE SCH (08:47)
[2022-08-02] MEDS: QUEtiapine Fumarate 25 MG TABLET GTUBE SCH ×2 (08:47→19:54)
[2022-08-02] MEDS: FLUoxetine HCl Oral Soln 20 MG/5 ML UDC GTUBE SCH (08:47)
[2022-08-02] MEDS: traZODone 50 MG TABLET GTUBE SCH (19:55)
[2022-08-02] MEDS: Melatonin 3 MG TABLET GTUBE SCH (19:55)
[2022-08-02] MEDS: Gabapentin 100 MG CAPSULE GTUBE SCH (19:55)
[2022-08-03] MEDS: *HR* Enoxaparin 40 MG/0.4 ML SYRINGE SQ SCH (05:36)
[2022-08-03] MEDS: Saliva Stimulant 44.3ml BOTTLE PO SCH ×3 (09:12→21:40)
[2022-08-03] MEDS: Cholecalciferol (D-3) 1,000 UNIT (25MCG) TABLET GTUBE SCH (09:12)
[2022-08-03] MEDS: FLUoxetine HCl Oral Soln 20 MG/5 ML UDC GTUBE SCH (09:12)
[2022-08-03] MEDS: QUEtiapine Fumarate 25 MG TABLET GTUBE SCH ×2 (09:12→21:40)
[2022-08-03] MEDS: Gabapentin 100 MG CAPSULE GTUBE SCH (21:40)
[2022-08-03] MEDS: traZODone 50 MG TABLET GTUBE SCH (21:40)
[2022-08-03] MEDS: Melatonin 3 MG TABLET GTUBE SCH (21:40)
[2022-08-04] MEDS: *HR* Enoxaparin 40 MG/0.4 ML SYRINGE SQ SCH (05:45)
[2022-08-04] MEDS: Cholecalciferol (D-3) 1,000 UNIT (25MCG) TABLET GTUBE SCH (08:46)
[2022-08-04] MEDS: FLUoxetine HCl Oral Soln 20 MG/5 ML UDC GTUBE SCH (08:46)
[2022-08-04] MEDS: QUEtiapine Fumarate 25 MG TABLET GTUBE SCH ×2 (08:46→19:22)
[2022-08-04] MEDS: Saliva Stimulant 44.3ml BOTTLE PO SCH ×2 (08:46→22:48)
[2022-08-04] MEDS: Melatonin 3 MG TABLET GTUBE SCH (19:22)
[2022-08-04] MEDS: traZODone 50 MG TABLET GTUBE SCH (19:22)
[2022-08-04] MEDS: Gabapentin 100 MG CAPSULE GTUBE SCH (19:23)
[2022-08-05] MEDS: Saliva Stimulant 44.3ml BOTTLE PO SCH ×4 (00:59→23:45)
[2022-08-05] MEDS: *HR* Enoxaparin 40 MG/0.4 ML SYRINGE SQ SCH (06:08)
[2022-08-05] MEDS: FLUoxetine HCl Oral Soln 20 MG/5 ML UDC GTUBE SCH (09:35)
[2022-08-05] MEDS: Cholecalciferol (D-3) 1,000 UNIT (25MCG) TABLET GTUBE SCH (09:35)
[2022-08-05] MEDS: QUEtiapine Fumarate 25 MG TABLET GTUBE SCH ×2 (09:35→20:01)
[2022-08-05] MEDS: Melatonin 3 MG TABLET GTUBE SCH (20:01)
[2022-08-05] MEDS: traZODone 50 MG TABLET GTUBE SCH (20:01)
[2022-08-05] MEDS: Gabapentin 100 MG CAPSULE GTUBE SCH (20:01)
[2022-08-06] MEDS: *HR* Enoxaparin 40 MG/0.4 ML SYRINGE SQ SCH (05:35)
[2022-08-06 06:39] VITALS: BP 98/62; PULSE 87; TEMP 97.4; O2SAT 100
[2022-08-06] MEDS: FLUoxetine HCl Oral Soln 20 MG/5 ML UDC GTUBE SCH (07:23)
[2022-08-06] MEDS: Saliva Stimulant 44.3ml BOTTLE PO SCH (07:23)
[2022-08-06] MEDS: Cholecalciferol (D-3) 1,000 UNIT (25MCG) TABLET GTUBE SCH (07:23)
[2022-08-06] MEDS: QUEtiapine Fumarate 25 MG TABLET GTUBE SCH (07:23)
[2022-08-06 09:34] LABS: Influenza A PCR Negative (Negative); Influenza B PCR Negative (Negative); Resp. Syncytial Virus PCR Negative (Negative)
[2022-08-06 09:53] LABS: SARS-CoV-2 by PCR (In House) Negative (Negative)
== END 2022-08-06 11:47 | DRG 59 ==
LOC: 3BNU 14:41 → EMEROOARM 14:41 → SUATTDRO 05-30 12:00 → 3BNU 05-30 12:18 → SUATTDRO 06-02 19:39 → 3BNU 06-04 21:17
PROVIDERS: ADMIT Internal Medicine; ATTEND Internal Medicine